=== PATIENT | male | born 1945 | race Caucasian/White ===

== ENCOUNTER 2020-07-06 | Outpatient (REF) | payer MEDICARE, SELFPAY | END 2020-07-06 00:01 | disposition home or self-care (01) | LOC: HO.VC | PROVIDERS: Visit Provider Internal Medicine | DX: Z23 Encounter for immunization (principal) | CPT/HCPCS: 0011A ==

== ENCOUNTER 2020-08-02 | Outpatient (REF) | payer MEDICARE, SELFPAY | END 2020-08-02 00:01 | disposition home or self-care (01) | LOC: HO.VC | PROVIDERS: Visit Provider Internal Medicine | DX: Z23 Encounter for immunization (principal) | CPT/HCPCS: 0012A ==

== ENCOUNTER 2021-07-18 11:25 | Outpatient (REF) | payer MEDICARE, SELFPAY ==
[2021-07-18 14:09] LABS: Appearance Urine CLEAR; Color Urine YELLOW; Glucose Urine UA NEG (NEG); Leukocyte Esterase Urine NEG (NEG); Nitrite Urine NEG (NEG); PH 5.5 (5.0-8.0); Specific Gravity - Urine >= 1.030 (1.005-1.025); Urine Blood NEG (NEG); Urine Ketones NEG (NEG); Urine Protein NEG (NEG-TRACE)
[2021-07-18 14:11] LABS: Hematocrit 45.4 % (42.0-52.0); Hemoglobin 15.6 g/dl (14.0-18.0); Mean Corpuscular HGB Conc 34.4 g/dl (31.0-36.0); Mean Corpuscular Hemoglobin 32.2 pg (27.0-33.0); Mean Corpuscular Volume 93.6 fL (80.0-98.0); Mean Platelet Volume 10.5 fL (9.4-12.4); Platelet Count 166 X10*3/uL (160-400); Red Blood Count 4.85 X10*6/uL (4.60-5.80); Red Cell Distribution Width 12.8 % (11.0-16.0); White Blood Count 6.2 X10*3/uL (4.8-10.8)
[2021-07-18 14:21] LABS: Alanine Aminotransferase 43 U/L (0-40); Albumin Level 4.5 g/dL (3.5-5.0); Alkaline Phosphatase 57 U/L (39-117); Anion Gap 13 (12-20); Aspartate Amino Transferase 32 U/L (5-37); Bilirubin Direct 0.4 mg/dL (0.0-0.5); Bilirubin Total 1.1 mg/dL (0.0-1.0); Blood Urea Nitrogen 14 mg/dL (9-16); Calcium 9.9 mg/dL (8.4-10.2); Carbon Dioxide 26 mmol/L (22-29); Chloride 106 mmol/L (96-108); Cholesterol 176 mg/dL; Estimated Glomerular Filt Rate > 60; Glucose Random 145 mg/dL (60-115); HDL Cholesterol 44 mg/dL; LDL Cholesterol Calculated 102 mg/dl; Potassium 4.3 mmol/L (3.3-5.1); Sodium 141 mmol/L (135-145); Total Protein 7.2 g/dL (6.5-8.0); Triglycerides 152 mg/dL
[2021-07-18 14:26] LABS: Estimated Average Glucose 146 mg/dL; Hemoglobin A1c % 6.7 %
[2021-07-18 14:39] LABS: Creatinine Urine 181.98 mg/dL; Microalbum/Creatinine Ratio Ur 10.9 ug/mg cr
[2021-07-18 14:44] LABS: Thyroid Stimulating Hormone 2.22 uIU/mL (0.32-4.0)
[2021-07-18 14:46] LABS: Erythrocyte Sedimentation Rate 7 MM/HR (0-15)
== END 2021-07-18 11:26 | disposition home or self-care (01) ==
LOC: HO.HMGCLDS 11:25
PROVIDERS: PCP Internal Medicine; Visit Provider Internal Medicine
DX: E11.9 Type 2 diabetes mellitus without complications (principal)
CPT/HCPCS: 36415; 80048; 80061; 80076; 81003; 82043; 83036; 84443; 85027; 85652

== ENCOUNTER → 2022-07-18 12:47 | Outpatient (BNVA) | payer MEDICARE, SELFPAY | PROVIDERS: PCP Internal Medicine; Visit Provider Urology | DX: N40.1 Benign prostatic hyperplasia with lower urinary tract symptoms (principal); N13.8 Other obstructive and reflux uropathy; R39.15 Urgency of urination | CPT/HCPCS: 51798; 99202 ==

== ENCOUNTER 2022-08-01 13:50 | Outpatient (REF) | payer MEDICARE, SELFPAY ==
--- NOTE | ~2022-08-01 | US_ITS ---
EXAMINATION: US RETROPERITONEAL LIMITED (RENAL ONLY) CLINICAL INFORMATION: Benign prostatic hyperplasia with lower urinary tract symptoms. COMPARISON: Ultrasound abdomen complete 04/17/2017. TECHNIQUE: Real-time imaging of the kidneys. FINDINGS: RIGHT KIDNEY: 11.7 x 6.4 x 6.4 cm (SAG x AP x TRV). The kidney is normal in size, contour, and echogenicity. Renal cortical thickness is normal. No renal calculi or hydronephrosis. There are multiple renal cysts. A midpole cyst measures 1.9 x 1.9 x 2.0 cm. A complex cyst midpole measuring 1.7 x 1.3 x 1.3 cm. A midpole cyst measures 0.63 x 0.70 x 0.72 cm. LEFT KIDNEY: 12.8 x 6.1 x 5.9 cm (SAG x AP x TRV). The kidney is normal in size, contour, and echogenicity. Renal cortical thickness is normal. No renal calculi or hydronephrosis. There are several additional anechoic cysts. A lower pole cyst measures 0.92 x 0.87 x 0.73 cm, midpole cyst measures 1.2 x 1.3 x 1.0 cm, a midpole cyst measures 2.6 x 3.6 x 2.3 cm and is complex. Two (2) upper pole cysts a simple cyst measuring 2.4 x 2.4 x 2.4 cm and a complex cyst measuring 7.9 x 6.2 x 5.6 cm. US/US renal BI IMPRESSION: Bilateral simple and complex renal cysts. The cyst may be minimally larger compared to last exam 04/17/2017.
== END 2022-08-01 13:51 | disposition home or self-care (01) ==
LOC: HO.HMGCX 13:50
PROVIDERS: PCP Internal Medicine; Visit Provider Urology
DX: N40.1 Benign prostatic hyperplasia with lower urinary tract symptoms (principal); R39.15 Urgency of urination
CPT/HCPCS: 76775

== ENCOUNTER 2022-08-02 11:18 | Outpatient (REF) | payer MEDICARE, SELFPAY ==
[2022-08-02 14:03] LABS: Appearance Urine Turbid; Color Urine Yellow; Glucose Urine UA Negative (Negative); Leukocyte Esterase Urine Negative (Negative); Nitrite Urine Negative (Negative); PH 5.5 (5.0-9.0); Specific Gravity - Urine >= 1.030 (1.005-1.025); Urine Blood Negative (Negative); Urine Ketones Trace mg/dL (Negative); Urine Protein Trace mg/dL (Neg-Trace)
[2022-08-02 14:26] LABS: Hemoglobin 14.5 g/dl (14.0-18.0); Mean Corpuscular HGB Conc 33.7 g/dl (31.0-36.0); Mean Corpuscular Volume 97.7 fL (80.0-98.0); Mean Platelet Volume 10.9 fL (9.4-12.4); Platelet Count 163 X10*3/uL (160-400); White Blood Count 6.2 X10*3/uL (4.8-10.8)
[2022-08-02 14:34] LABS: Alanine Aminotransferase 32 U/L (0-40); Albumin Level 4.2 g/dL (3.5-5.0); Alkaline Phosphatase 51 U/L (39-117); Anion Gap 12 (12-20); Aspartate Amino Transferase 24 U/L (5-37); Bilirubin Direct 0.3 mg/dL (0.0-0.5); Bilirubin Total 0.9 mg/dL (0.0-1.0); Blood Urea Nitrogen 18 mg/dL (9-16); Calcium 9.2 mg/dL (8.4-10.2); Carbon Dioxide 27 mmol/L (22-29); Chloride 106 mmol/L (96-108); Cholesterol 154 mg/dL; Estimated Glomerular Filt Rate > 60; Glucose Random 127 mg/dL (60-115); HDL Cholesterol 50 mg/dL; LDL Cholesterol Calculated 88 mg/dl; Potassium 4.4 mmol/L (3.3-5.1); Sodium 141 mmol/L (135-145); Total Protein 6.6 g/dL (6.5-8.0); Triglycerides 80 mg/dL
[2022-08-02 14:47] LABS: Prostate Specific Antigen Scr 0.34 ng/mL (<0.05-4.0)
[2022-08-02 14:49] LABS: PSA,Total (Free>4and<10) 0.36 ng/mL (0.00-4.00); Thyroid Stimulating Hormone 1.57 uIU/mL (0.32-4.0)
== END 2022-08-02 11:19 | disposition home or self-care (01) ==
LOC: HO.HMGCLDS 11:18
PROVIDERS: Urology; PCP Internal Medicine; Visit Provider Internal Medicine
DX: N40.1 Benign prostatic hyperplasia with lower urinary tract symptoms (principal); E11.9 Type 2 diabetes mellitus without complications; M35.3 Polymyalgia rheumatica; Z12.5 Encounter for screening for malignant neoplasm of prostate
CPT/HCPCS: 36415; 80048; 80061; 80076; 81003; 84153; 84443; 85027

== ENCOUNTER → 2022-10-12 14:22 | Outpatient (BNVA) | payer MEDICARE, SELFPAY | PROVIDERS: PCP Internal Medicine; Visit Provider Urology | DX: N40.0 Benign prostatic hyperplasia without lower urinary tract symptoms (principal); N28.1 Cyst of kidney, acquired | CPT/HCPCS: 52000; 99212 ==

== ENCOUNTER 2022-11-08 09:04 | Outpatient (REF) | payer MEDICARE, SELFPAY ==
[2022-11-08 11:37] LABS: MANUAL DIFF FLAG NO
[2022-11-08 11:53] LABS: Basophils Percent Auto 0.5 % (0-2); Eosinophils Absolute Auto 0.1 X10*3/uL (0.0-0.4); Eosinophils Percent Auto 2.4 % (0-4); Hematocrit 42.3 % (42.0-52.0); Imm Gran Abs Auto 0.02 X10*3/uL (0.00-0.03); Imm Gran Pct Auto 0.3 % (0.0-0.4); Lymphocytes Absolute Auto 0.9 X10*3/uL (1.2-4.9); Lymphocytes Percent Auto 14.6 % (20-40); Mean Corpuscular HGB Conc 33.1 g/dl (31.0-36.0); Mean Corpuscular Volume 99.8 fL (80.0-98.0); Mean Platelet Volume 10.9 fL (9.4-12.4); Monocytes Absolute Auto 0.6 X10*3/uL (0.1-1.2); Monocytes Percent Auto 10.2 % (2-11); Neutrophils Absolute Auto 4.2 x10*3/uL (2.0-8.3); Platelet Count 167 X10*3/uL (160-400); Red Blood Count 4.24 X10*6/uL (4.60-5.80); Red Cell Distribution Width 13.5 % (11.0-16.0); White Blood Count 5.9 X10*3/uL (4.8-10.8)
[2022-11-08 11:58] LABS: D Dimer High Sensitivity 160 NG/ML
[2022-11-08 12:04] LABS: B Type Natriuretic Peptide 257 pg/mL (<100)
[2022-11-08 12:12] LABS: Alanine Aminotransferase 43 U/L (0-40); Albumin Level 4.2 g/dL (3.5-5.0); Alkaline Phosphatase 66 U/L (39-117); Anion Gap 14 (12-20); Aspartate Amino Transferase 37 U/L (5-37); Blood Urea Nitrogen 10 mg/dL (9-16); Calcium 9.8 mg/dL (8.4-10.2); Carbon Dioxide 27 mmol/L (22-29); Chloride 106 mmol/L (96-108); Estimated Glomerular Filt Rate > 60; Glucose Random 114 mg/dL (60-115); Potassium 4.6 mmol/L (3.3-5.1); Sodium 142 mmol/L (135-145); Total Protein 6.6 g/dL (6.5-8.0)
== END 2022-11-08 09:05 | disposition home or self-care (01) ==
LOC: HO.HMGCLDS 09:04
PROVIDERS: PCP Internal Medicine; Visit Provider Nurse Practitioner Family
DX: R60.0 Localized edema (principal); R06.02 Shortness of breath; R01.1 Cardiac murmur, unspecified; Z13.0 Encounter for screening for diseases of the blood and blood-forming organs and certain disorders involving the immune mechanism
CPT/HCPCS: 36415; 80053; 83880; 85025; 85379

== ENCOUNTER 2022-11-22 13:21 | Outpatient (REF) | payer MEDICARE, SELFPAY ==
--- NOTE | ~2022-11-22 | CT_ITS ---
EXAMINATION: CT ABDOMEN AND PELVIS WITHOUT AND WITH CONTRAST CLINICAL INFORMATION: Kidney cyst COMPARISON: Previous renal ultrasound August 2022, abdominal ultrasound April 2017 TECHNIQUE: Multidetector volumetric imaging was performed of the abdomen and pelvis before and after the IV administration of 85 mL of Omnipaque 300 intravenous contrast. Sagittal and coronal reformatted images were obtained on the technologist's workstation. This CT examination was performed using dose optimization techniques as appropriate, variously including the following: *Automated exposure control *Adjustment of mA and/or kV according to patient size (this includes techniques or standardized protocols for targeted exams where dose is matched to indication/reason for exam; i.e. extremities or head) *Use of iterative reconstruction technique DLP: 1233 mGy-cm FINDINGS: LUNG BASES: 3 mm calcified right lower lobe nodule. The lungs are otherwise clear. LIVER, GALLBLADDER, AND BILIARY TREE: Question mild cirrhotic changes of the liver. No focal liver lesion. Normal gallbladder. No biliary duct dilatation. PANCREAS: Unremarkable SPLEEN: Unremarkable ADRENAL GLANDS: Unremarkable KIDNEYS AND URETERS: Multiple bilateral simple appearing renal cysts. Largest cysts exophytic to the upper pole of the left kidney and measures 6.3 x 7.8 cm. No imaging follow-up recommended. No renal stone, mass or hydronephrosis. BLADDER: Unremarkable GASTROINTESTINAL TRACT: Diverticulosis of the colon. No evidence of diverticulitis. Small and large bowel is otherwise unremarkable. The appendix is unremarkable. ABDOMINAL WALL: Right inguinal hernia containing fat. Small umbilical hernia containing fat LYMPH NODES: Normal VASCULAR: Atherosclerotic disease. No aneurysm. Portal vein is prominent measuring 1.7 cm. There are small upper abdominal varices. No ascites. PELVIC VISCERA: Unremarkable OSSEOUS STRUCTURES: Degenerative changes of the spine. CT/CT abdomen pelvis wo/w IV con IMPRESSION: Multiple bilateral simple renal cysts. No imaging follow-up recommended. Mild cirrhotic changes of the liver. Diverticulosis. Fleischner guidelines were followed.
[2022-11-22] MEDS: iohexoL 350 MG/ML 100 ML INFUS..BTL IV (14:26)
== END 2022-11-22 13:22 | disposition home or self-care (01) ==
LOC: HO.CT 13:21
PROVIDERS: Visit Provider Urology
DX: N28.1 Cyst of kidney, acquired (principal)
CPT/HCPCS: 74178; Q9967

== ENCOUNTER → 2022-12-10 12:51 | Outpatient (REF) | payer MEDICARE, SELFPAY | LOC: HO.CARD 12:51 | PROVIDERS: PCP Internal Medicine; Visit Provider Nurse Practitioner Family | DX: R01.1 Cardiac murmur, unspecified (principal) | CPT/HCPCS: 93306; Q9957 ==

== ENCOUNTER → 2022-12-10 12:53 | Outpatient (BNV) | payer MEDICARE, SELFPAY | PROVIDERS: PCP Internal Medicine; Visit Provider Internal Medicine Cardiovascular Disease | DX: R01.1 Cardiac murmur, unspecified (principal) | CPT/HCPCS: 93306 ==

== ENCOUNTER 2022-12-12 13:55 | Outpatient (AMB) | payer MEDICARE, SELFPAY ==
--- NOTE | 2022-12-12 12:59 | A.OFFVIS_ITS ---
Intake Intake Visit Reasons: 2m/CT Intake Note: * Patient presents today for a 2mo follow-up on with CT scan results. * Meds- None * Allergies to Antibiotic- None * Blood Thinner- Aspirin & Furosemide * PVR- 0ml Neurosurgical Nurse Required: No Accompanied by: Self / Same As Patient Allergies No Known Allergies [No Known Allergies*] Allergy (Verified 12/12/22 14:10) HPI HPI Comments History of Present Illness Details Bry is a 77-year-old male who presents to the office for 2-month follow-up and discussion of CT scan results. He was last seen on 10/12/22. CoMorbidity- Diabetes, denies previous stroke. Complex renal cyst bilaterally noted on renal sono. CAT scan abdomen with/without contrast was ordered. LV--10/12/22-- Bry is a 77-year-old male who presents to the office for follow-up of urinary urgency and BPH. Office visit--07/18/22--complains over the last several months to year has noticed a change in urination, he is up 3-4 times to urinate at night. When he gets up from sitting he gets a strong urge and needs to pineda to the bathroom, Denies blood in the urine, denies dysuria. He is concerned about cancer. Patient declined prostate exam The patient states that his symptoms of urinary urgency have resolved and is having good urine flow. Will hold on Office Cystoscopy Urinalysis today was negative. Renal US results were discussed and we are going to get further evaluation with CAT scan. Discussed PSA which was normal. Evaluation 10/12/22 UA-- Blood: negative, leukocytes: negative. Renal US results reviewed--08/01/22--findings of left kidney complex cyst measuring 7.9 cm, lower pole cyst measuring 0.92 cm and midpole cyst measures 1.2 and 2.6 cm. Right kidney midpole cyst measures 1.9 and complex cyst midpole measuring 1.7. PSA results reviewed--08/02/22--0.34. Plan:Complex renal cyst bilaterally. CAT scan abdomen with/without contrast was ordered. 12/12/22-- Evaluation today UA: Bladder scan PVR: 0 mL. Reviewed CAT scan--11/22/22--The CAT scan is consistent with simple cyst, no imaging follow-up recommended. Plan: Renal Cysts bilaterally, simple BPH Follow-up after 9 months. [facility] Medical History Diabetes mellitus Mild ascending aorta dilatation Polymyalgia rheumatica Surgical History History of bilateral cataract extraction History of inguinal hernia repair History of lumbar laminectomy History of nasal surgery Family History Father No problems noted. Mother No problems noted. Brother Esophageal cancer Social History Housing: House Alcohol intake: current Alcohol intake frequency: holidays/special occasions only Alcohol type: beer Patient Tobacco Use Status: Former Tobacco user Quit Date: 43 years ago e-Cigarette/Vaping Use: Never Used Second Hand Smoke Exposure: No service: No Current occupational status: retired Cognitive needs: No Hearing needs: No Vision needs: Yes (reading glasses) Review of Systems Const All systems reviewed & are unremarkable except as noted in HPI and below Reports no additional complaints Eyes Reports no additional complaints ENT Reports no additional complaints Card Denies dyspnea Resp Denies cough and Denies dyspnea GI Reports no additional complaints Musc Reports no additional complaints Skin/Breast Denies rash and Denies unusual bruising Neuro Reports no additional complaints Psych Reports no additional complaints Endo Reports no additional complaints Italo/Lymph Reports no additional complaints Aller/Immun Reports no additional complaints Physical Exam Const General: healthy appearing, no acute distress and well developed Orientation/consciousness: patient oriented x3 HEENT Head: Yes normocephalic and Yes atraumatic Eyes Conjunctivae: conjunctivae normal Neck Neck: Yes normal visual inspection Chest Chest palpation & inspection: normal inspection of the chest Resp Effort & Inspection: normal respiratory effort Cardio Rate: regular rate GI Inspection: Yes normal to inspection Skin General skin exam: no rashes or lesions noted Neuro General: patient oriented x3 Psych Appearance: grossly normal Affect: normal affect Office Procedures Post Void Residual Post Residual Void Post Void Residual (PVR): 0 02603-[id number] Void Residual by ultrasound Results AMB Urinalysis, Automated UA Leukoctes 0 Rubens/uL Last Edit by Milind Sanz [facility] on 12/12/22 14:10 UA Nitrite Negative Last Edit by Milind Sanz [facility] on 12/12/22 14:10 UA Urobilinogen 0.2 mg/dL Last Edit by Milind Sanz [facility] on 12/12/22 14:1 0 UA Protein 0 mg/dL Last Edit by Milind Sanz [facility] on 12/12/22 14:10 UA pH 6.0 Last Edit by Milind Sanz [facility] on 12/12/22 14:10 UA Blood 0 Gio/uL Last Edit by Milind Sanz [facility] on 12/12/22 14:10 UA Specific [place] 1.030 Last Edit by Milind Sanz [facility] on 12/12/22 14: 10 UA Ketone Negative Last Edit by Milind Sanz [facility] on 12/12/22 14:10 UA Bilirubin 0 mg/dL Last Edit by Milind Sanz [facility] on 12/12/22 14:10 UA Glucose 0 mg/dL Last Edit by Milind Sanz [facility] on 12/12/22 14:10 Results Reviewed Results Reviewed: Laboratory Last Values Urine pH (Auto) 6.0 12/12/22 13:59 Specific [place] (Auto) 1.030 12/12/22 13:59 Urine Protein (Auto) 0 mg/dL 12/12/22 13:59 Glucose (UA)(Auto) 0 mg/dL 12/12/22 13:59 Urine Ketones (Auto) Negative 12/12/22 13:59 Urine Blood (Auto) 0 Gio/uL 12/12/22 13:59 Urine Nitrite (Auto) Negative 12/12/22 13:59 Urine Bilirubin (Auto) 0 mg/dL 12/12/22 13:59 Urine Urobilinogen (Auto) 0.2 mg/dL 12/12/22 13:59 Leukocyte Esterase (Auto) 0 Rubens/uL 12/12/22 13:59 Date of Service: 11/22/22 EXAMINATION: CT ABDOMEN AND PELVIS WITHOUT AND WITH CONTRAST CLINICAL INFORMATION: Kidney cyst COMPARISON: Previous renal ultrasound August 2022, abdominal ultrasound April 2017 TECHNIQUE: Multidetector volumetric imaging was performed of the abdomen and pelvis before and after the IV administration of 85 mL of Omnipaque 300 intravenous contrast. Sagittal and coronal reformatted images were obtained on the technologist's workstation. This CT examination was performed using dose optimization techniques as appropriate, variously including the following: *Automated exposure control *Adjustment of mA and/or kV according to patient size (this includes techniques or standardized protocols for targeted exams where dose is matched to indication/reason for exam; i.e. extremities or head) *Use of iterative reconstruction technique DLP: 1233 mGy-cm FINDINGS: LUNG BASES: 3 mm calcified right lower lobe nodule. The lungs are otherwise clear. LIVER, GALLBLADDER, AND BILIARY TREE: Question mild cirrhotic changes of the liver. No focal liver lesion. Normal gallbladder. No biliary duct dilatation. PANCREAS: Unremarkable SPLEEN: Unremarkable ADRENAL GLANDS: Unremarkable KIDNEYS AND URETERS: Multiple bilateral simple appearing renal cysts. Largest cysts exophytic to the upper pole of the left kidney and measures 6.3 x 7.8 cm. No imaging follow-up recommended. No renal stone, mass or hydronephrosis. BLADDER: Unremarkable GASTROINTESTINAL TRACT: Diverticulosis of the colon. No evidence of diverticulitis. Small and large bowel is otherwise unremarkable. The appendix is unremarkable. ABDOMINAL WALL: Right inguinal hernia containing fat. Small umbilical hernia containing fat LYMPH NODES: Normal VASCULAR: Atherosclerotic disease. No aneurysm. Portal vein is prominent measuring 1.7 cm. There are small upper abdominal varices. No ascites. PELVIC VISCERA: Unremarkable OSSEOUS STRUCTURES: Degenerative changes of the spine. IMPRESSION: Multiple bilateral simple renal cysts. No imaging follow-up recommended. Mild cirrhotic changes of the liver. Diverticulosis. Assessment & Plan Assessment & Plan (1) Simple renal cyst: Code(s): N28.1 - Cyst of kidney, acquired (2) BPH (benign prostatic hyperplasia): Code(s): N40.0 - Benign prostatic hyperplasia without lower urinary tract symptoms Plan Follow-up after 9 months. Orders: Orders AMB Urinalysis Automated 12/12/22 Z13.9 - Encounter for screening, unspecified AMB Post Void Residual by ultrasound 12/12/22 N39.8 - Other specified disorders of urinary system Patient Instructions: The patient had an opportunity to ask questions regarding treatment plan. All questions were answered. Imaging and physical exam results were discussed and reviewed in detail. No major barriers to understanding were identified. The patient expressed understanding and agreement with the above treatment plan. The patient is aware they should contact our office by phone for worsening of their current condition or the appearance of new symptoms. Compliance is encouraged with any medications and followup testing that is ordered. It is a privilege to be allowed the opportunity to participate in the urologic care of your patient. If you have any questions or concerns regarding treatment for the above conditions please do not hesitate to contact me. The office telephone contact is [phone]. This note is constructed in part using voice recognition software. While every effort has been made to ensure accuracy material preparation worker errors may have been included. Yours sincerely, Rom Akins MD Coding Level of Care Code Est Pt Level 3 (78986) Diagnoses Simple renal cyst N28.1 BPH (benign prostatic hyperplasia) N40.0 CPT Codes Post Residual Void - PVR CPT Code: 46459-Urhv Void Residual by ultrasound ([id number])
== END 2022-12-12 14:18 | disposition home or self-care (01) ==
PROVIDERS: Visit Provider Urology
DX: N28.1 Cyst of kidney, acquired (principal); N40.0 Benign prostatic hyperplasia without lower urinary tract symptoms
CPT/HCPCS: 99213

== ENCOUNTER → 2022-12-12 13:55 | Outpatient (BNVA) | payer MEDICARE, SELFPAY | PROVIDERS: Visit Provider Urology | DX: N28.1 Cyst of kidney, acquired (principal); N40.0 Benign prostatic hyperplasia without lower urinary tract symptoms; R39.15 Urgency of urination; E11.9 Type 2 diabetes mellitus without complications; R91.1 Solitary pulmonary nodule; Z79.82 Long term (current) use of aspirin; Z79.899 Other long term (current) drug therapy | CPT/HCPCS: 51798; 99212 ==

== ENCOUNTER 2022-12-26 13:19 | Outpatient (AMB) | payer MEDICARE, SELFPAY ==
--- NOTE | 2022-12-26 13:21 | A.OFFVIS_ITS ---
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/ V/non rheumatic aortic stenosis Intake Note: New patient aortic stenosis Commercial Intelligence Manager Required: No Financial Professional: Financial Professional Present Accompanied by: Spouse Allergies No Known Allergies [No Known Allergies*] Allergy (Verified 12/12/22 14:10) Medication List - Last Reconciled 12/26/22 by Danny Garduno MD aspirin 81 mg PO DAILY atorvastatin 20 mg PO DAILY metformin ER 500 mg PO BID metoprolol succinate ER 50 mg PO DAILY pioglitazone 15 mg PO DAILY HPI HPI Comments History of Present Illness Details Thank you for referring Saud in cardiology consultation today for recent onset increasing exertional shortness of breath. Since then he had an echocardiogram which showed low normal LV systolic function with mild LVH with moderate to severe aortic stenosis with mean gradient of 24 mmHg and mildly dilated ascending aorta. He also had a BNP done around that time which was in the upper 200 range. He denies any clear symptoms of leg edema or abdominal distension or orthopnea. He denies any associated chest discomfort. Since then he has changed his diet significantly and says he has lost about 15 lb of belly weight. He shortness of breath has improved. He denies any exertional chest tightness. No prolonged palpitation irregular heartbeat. No lightheadedness, syncope. He said about 21 years ago he had a heart attack related to lot of stress at that time at a cardiac catheterization and was told that he had partial blockage is about up to 50%. He does not recall the details. At that time no stents were put in. Since then he has been on statin therapy along with aspirin therapy. He has been since diagnosed with diabetes as been metformin and about a year ago was started on p.o. bleed his own. He has no clear history of hypertension. No hospitalizations for heart failure. [facility] Medical History Diabetes mellitus Mild ascending aorta dilatation Polymyalgia rheumatica Surgical History History of bilateral cataract extraction History of inguinal hernia repair History of lumbar laminectomy History of nasal surgery Family History Father No problems noted. Mother No problems noted. Brother Esophageal cancer Social History Housing: House Alcohol intake: current Alcohol intake frequency: holidays/special occasions only Alcohol type: beer Patient Tobacco Use Status: Former Tobacco user Quit Date: 43 years ago e-Cigarette/Vaping Use: Never Used Second Hand Smoke Exposure: No service: No Current occupational status: retired Cognitive needs: No Hearing needs: No Vision needs: Yes (reading glasses) Review of Systems Const Denies chills, Denies daytime sleepiness, Denies fatigue, Denies fever(s), Denies frequent falls, Denies poor appetite, Denies snoring, Denies stops breathing during sleep, Denies weakness, Denies weight gain and Denies weight loss Eyes Denies loss of vision ENT Denies dizziness and Denies hearing loss Card Denies chest pain, Denies claudication, Denies leg edema, Denies lightheadedness, Denies palpitations, Denies dyspnea, Denies dyspnea on exertion and Denies orthopnea Resp Denies cough, Denies excessive phlegm production, Denies dyspnea, Denies dyspnea on exertion, Denies snoring and Denies wheezing GI Denies abdominal pain, Denies hematochezia, Denies change in bowel habits, Denies nausea and Denies vomiting Denies dysuria and Denies urinary frequency Musc Denies arthralgias, Denies muscle weakness, Denies numbness and Denies other (frequent falls) Skin/Breast Denies nail changes and Denies rash Neuro Denies Abnormal speech present, Denies dizziness, Denies frequent falls, Denies loss of vision, Denies memory loss, Denies numbness and Denies weakness Psych Denies depression and Denies memory loss Endo Denies fatigue and Denies palpitations Italo/Lymph Reports easy bruising and Reports other (anemia) Aller/Immun Denies wheezing Physical Exam Vital Signs: Last Vital Signs Pulse 73 12/26/22 13:22 BP 114/74 12/26/22 13:22 BMI result Body Mass Index 32.3 Const General: cooperative, comfortable, no acute distress, alert, awake, anxious and well groomed Nutritional Appearance: obese Orientation/consciousness: patient oriented x3 Limitations: no limitations HEENT Head: Yes normocephalic and Yes atraumatic Neck Neck: Yes trachea midline, Yes supple and Yes no JVD Resp Effort & Inspection: normal respiratory effort Auscultation: clear to auscultation bilaterally Cardio Jugular venous distension: no JVD Palpation: normal PMI Rate: regular rate Rhythm: regular rhythm Heart sounds: S1 normal heart sound present, S2 normal heart sound present ( soft), no click, no gallops and Murmur heart sound present systolic late, decrescendo and crescendo GI Inspection: Yes obesity Auscultation: normal bowel sounds Skin General skin exam: no rashes or lesions noted Neuro General: patient oriented x3 and no focal motor deficits Speech: No Abnormal speech present Extrem General: Yes no clubbing, cyanosis or edema Office Procedures EKG Details: EKG shows normal sinus rhythm first-degree AV block with minimal voltage criteria for LVH with inferior Q-waves [id number], Complete Assessment & Plan Assessment & Plan (1) Shortness of breath: Code(s): R06.02 - Shortness of breath Plan: shortness of breath on exertion, recent onset in this elderly gentleman with improved symptoms since losing weight with evidence of elevated BNP as well as moderately severe aortic stenosis. Possible reason for symptoms include progressive coronary artery disease with significant myocardial ischemia, early in CP and diastolic heart failure secondary diastolic dysfunction. Less likely that her his aortic stenosis is causing him symptoms. At this point time his symptoms improved weight loss advised to continue to participate in weight loss program although avoid sudden strenuous and sustain exercise. I would recommend him to undergo cardiac catheterization with hemodynamic assessment including assessment of the aortic valve invasively. Evaluation of coronary anatomy as well as left heart and right heart filling pressures. Further treatment based on the findings. I have advised him to stop p.o. clear to zone which can potentiate fluid retention and switch her to Jardiance 10 mg daily. Currently he does not appear to be significantly fluid overloaded and there is no need for loop diuretic at this point time. Will check BNP in 1 weeks time. Continue aggressive blood pressure control. We discussed the risks, benefits, alternatives cardiac catheterization. He understands and agrees. (2) Moderate to severe aortic stenosis: Code(s): I35.0 - Nonrheumatic aortic (valve) stenosis Plan: Aortic stenosis which is moderate to moderately severe. We discussed about pathophysiology of aortic stenosis and usual natural course with progressive aortic stenosis that may require valve replacement. However does not require valve replacement this point time and unlikely that this is the cause of his significant shortness of breath. Advised continue aggressive risk factor modification. Low-dose aspirin therapy. Continue aggressive management of blood pressure which is well optimized. Aggressive management diabetes goal hemoglobin A1c less than 7% goal LDL closer to 60 mg/dL. Follow up in the clinic after cardiac catheterization. Thank you for allowing me to partake in his care Orders: Orders Cardiac Cath ANGEL Diagnostic 2 Weeks R06.02 - Shortness of breath B Type Natriuretic Peptide 1 Week R06.02 - Shortness of breath Basic Metabolic Panel 1 Week R06.02 - Shortness of breath Complete Blood Count no Diff 1 Week R06.02 - Shortness of breath Prothrombin Time INR 1 Week R06.02 - Shortness of breath Medications: New empagliflozin (Jardiance) 10 mg PO DAILY 30 tabs 5RF atorvastatin 40 mg PO DAILY 30 tabs 2RF Discontinued pioglitazone Discontinued Reason: No Longer Medically Relevant 15 mg PO DAILY 90 tabs 1RF Coding Level of Care Code New Pt Level 4 (90900) Diagnoses Shortness of breath R06.02 Moderate to severe aortic stenosis I35.0 CPT Codes EKG - CPT: 42161-[id number], Complete ([id number])
[2022-12-26 13:22] VITALS: BP 114/74; PULSE 73; BMI 32.3
== END 2022-12-26 14:05 | disposition home or self-care (01) ==
PROVIDERS: PCP Internal Medicine; Visit Provider Internal Medicine Cardiovascular Disease
DX: R06.02 Shortness of breath (principal); I35.0 Nonrheumatic aortic (valve) stenosis; I44.0 Atrioventricular block, first degree
CPT/HCPCS: 93010; 99204

== ENCOUNTER → 2022-12-26 13:19 | Outpatient (BNVA) | payer MEDICARE, SELFPAY | PROVIDERS: PCP Internal Medicine; Visit Provider Internal Medicine Cardiovascular Disease | DX: R06.02 Shortness of breath (principal); I35.0 Nonrheumatic aortic (valve) stenosis | CPT/HCPCS: 93005; 99202 ==

== ENCOUNTER 2023-01-10 14:55 | Outpatient (AMB) | payer MEDICARE, SELFPAY ==
--- NOTE | 2023-01-10 15:06 | A.OFFPC_ITS ---
Vital Signs 01/10/23 15:08 Height 5 ft 10 in Weight 220 lb 2 oz BMI 31.6 BP 132/76 Blood Pressure Location Lt brachial Position Sitting Pulse 71 Pulse Source Pulse Oximeter Pulse Oximetry (%) 98 Oxygen Delivery Method Room Air Intake Visit Reasons: 6mth f/u - microalbumin due Intake Note: Patient is here to follow up on DM, BPH. Due for microalbumin. 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: Not Required per policy Accompanied by: Self / Same As Patient Allergies No Known Allergies [No Known Allergies*] Allergy (Verified 01/25/23 18:35) Medication List - Last Reconciled 01/25/23 by Thomas Gonzales MD aspirin 81 mg PO DAILY atorvastatin 40 mg PO DAILY metformin ER 500 mg PO BID metoprolol succinate ER 50 mg PO DAILY Tobacco use date assessed: 01/10/23 Fall risk assessment: 1 Fall in past year Last assessed Fall Risk: 01/10/23 Dental Screening Dental Screen Date: 01/10/23 Did you have a dental visit in the last 12 months?: Yes Did you have a dental problem in the last 6 months where you did not have access to dental care?: No Was dental information given to patient?: Patient has dentist HPI 6mth f/u - microalbumin due HPI Details 77-year-old male presents to the office to discuss his chronic medical conditions. Patient spent some time at [facility] after he had a fall at home. He was diagnosed with aortic stenosis. He has a scheduled to see the social welfare research worker. [facility] Medical History Diabetes mellitus Mild ascending aorta dilatation Polymyalgia rheumatica Surgical History History of bilateral cataract extraction History of inguinal hernia repair History of lumbar laminectomy History of nasal surgery Family History Father No problems noted. Mother No problems noted. Brother Esophageal cancer Social History Housing: House Alcohol intake: current Alcohol intake frequency: holidays/special occasions only Alcohol type: beer Patient Tobacco Use Status: Former Tobacco user Quit Date: 43 years ago e-Cigarette/Vaping Use: Never Used Second Hand Smoke Exposure: No service: No Current occupational status: retired Cognitive needs: No Hearing needs: No Vision needs: Yes (reading glasses) Questionnaire Thrive Questionnaire Date Thrive assessed: 07/10/22 AUDIT C Alcohol Use Questionnaire (AUDIT-C) 1. How often do you have a drink containing alcohol?: Never Total Score: 0 FLACO-7 AMB Questionnaire FLACO-7 Date FLACO - 7 assessed: 01/10/23 Feeling nervous, anxious, or on edge: 0 = Not at all Not being able to stop or control worryin = Not at all Worrying too much about different things: 0 = Not at all Trouble relaxin = Not at all Being so restless that it is hard to sit still: 0 = Not at all Becoming easily annoyed or irritable: 0 = Not at all Feeling afraid as if something awful might happen: 0 = Not at all Total FLACO-7 score (0-4 normal; 5-9 mild; 10-14 moderate; 15-21 severe): 0 Source: Developed by Drs. Guillermo Jha, Christiane Alegria, Tim Delgado and colleagues, with an educational dante from [employer]. Physical exam (Primary Care) Vital Signs: Last Vital Signs Pulse 71 01/10/23 15:08 BP 132/76 01/10/23 15:08 Pulse Ox 98 01/10/23 15:08 Oxygen Delivery Method Room Air 01/10/23 15:08 Care Plan Goal for BP management: Blood pressure is in range BMI result Body Mass Index 31.6 Tobacco/Smoking Status: Tobacco use Status Tobacco use date assessed 01/10/23 01/10/23 15:35 Patient Tobacco Use Status Former Tobacco user 01/10/23 15:35 e-Cigarette/Vaping Use Never Used 01/10/23 15:35 Thrive Assessment: Date of Thrive Assessment Date Thrive assessed 07/10/22 01/10/23 15:35 Const General: cooperative, healthy appearing and comfortable HENMT Head: Yes normal to inspection and Yes atraumatic Eyes General: appearance normal, both eyes and all related structures Neck Neck: Yes normal visual inspection and Yes full ROM Chest Chest palpation & inspection: normal inspection of the chest Resp Effort & Inspection: normal respiratory effort Auscultation: clear to auscultation bilaterally Cardio Jugular venous distension: no JVD Palpation: normal PMI Rate: regular rate Heart sounds: S1 normal heart sound present and S2 normal heart sound present GI Palpation (GI): Soft to palpation and No hepatosplenomegaly present Extrem General: Yes normal to inspection and Yes full ROM Results AMB Hemoglobin A1c AMB Hemoglobin A1c 6.2 % Last Edit by DORIS South on 01/10/23 15:37 Results Reviewed Results Reviewed: Laboratory Last Values Hgb A1c (Clinic) 6.2 % (4.0-6.0) H 01/10/23 15:06 Assessment and Plan Assessment & Plan (1) Moderate to severe aortic stenosis: Code(s): I35.0 - Nonrheumatic aortic (valve) stenosis Plan: Patient is an appointment with social welfare research worker. I encouraged him to keep it. (2) BPH loc w urin obs/LUTS: Code(s): N40.1 - Benign prostatic hyperplasia with lower urinary tract symptoms Plan: Viral it is own has been discontinued. (3) Diabetes mellitus: Code(s): E11.9 - Type 2 diabetes mellitus without complications Orders: Orders AMB Hemoglobin A1c 01/10/23 E11.9 - Type 2 diabetes mellitus without complications Coding Level of Care Code Est Pt Level 3 (97280) Diagnoses Moderate to severe aortic stenosis I35.0 BPH loc w urin obs/LUTS N40.1 Diabetes mellitus E11.9
[2023-01-10 15:08] VITALS: BP 132/76; PULSE 71; O2SAT 98; BMI 31.6
== END 2023-01-10 15:52 | disposition home or self-care (01) ==
PROVIDERS: PCP Internal Medicine; Visit Provider Internal Medicine
DX: I35.0 Nonrheumatic aortic (valve) stenosis (principal); N40.1 Benign prostatic hyperplasia with lower urinary tract symptoms; E11.9 Type 2 diabetes mellitus without complications
CPT/HCPCS: 83036; 99213

== ENCOUNTER 2023-01-15 09:05 | Outpatient (REF) | payer MEDICARE, SELFPAY ==
[2023-01-15 11:26] LABS: Prothrombin Time 12.3 SEC (11.1-13.3)
[2023-01-15 11:29] LABS: Hematocrit 45.3 % (42.0-52.0); Hemoglobin 15.2 g/dl (14.0-18.0); Mean Corpuscular HGB Conc 33.6 g/dl (31.0-36.0); Mean Corpuscular Hemoglobin 32.6 pg (27.0-33.0); Mean Corpuscular Volume 97.2 fL (80.0-98.0); Mean Platelet Volume 10.4 fL (9.4-12.4); Platelet Count 176 X10*3/uL (160-400); Red Blood Count 4.66 X10*6/uL (4.60-5.80); Red Cell Distribution Width 12.8 % (11.0-16.0); White Blood Count 5.3 X10*3/uL (4.8-10.8)
[2023-01-15 11:46] LABS: B Type Natriuretic Peptide 142 pg/mL (<100)
[2023-01-15 12:02] LABS: Anion Gap 14 (12-20); Blood Urea Nitrogen 13 mg/dL (9-16); Calcium 10.4 mg/dL (8.4-10.2); Carbon Dioxide 30 mmol/L (22-29); Chloride 103 mmol/L (96-108); Estimated Glomerular Filt Rate > 60; Glucose Random 122 mg/dL (60-115); Sodium 142 mmol/L (135-145)
== END 2023-01-15 09:06 | disposition home or self-care (01) ==
LOC: HO.HMGCLDS 09:05
PROVIDERS: PCP Internal Medicine; Visit Provider Internal Medicine Cardiovascular Disease
DX: R06.02 Shortness of breath (principal)
CPT/HCPCS: 36415; 80048; 83880; 85027; 85610

== ENCOUNTER → 2023-01-24 23:59 | Outpatient (BNV) | payer MEDICARE, SELFPAY | PROVIDERS: PCP Internal Medicine; Visit Provider Internal Medicine Cardiovascular Disease | DX: I35.0 Nonrheumatic aortic (valve) stenosis (principal); I20.8 Other forms of angina pectoris; R06.00 Dyspnea, unspecified | CPT/HCPCS: 93460; 93566; 99152 ==

== ENCOUNTER → 2023-05-01 12:52 | Outpatient (REF) | payer MEDICARE, SELFPAY ==
--- NOTE | 2023-05-01 12:54 | CA_ITS ---
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 Mild to moderate LV systolic dysfunction with impaired relaxation pattern 2. Mildly dilated 3. Normally functioning bioprosthetic aortic valve with mean gradient of 8 mm of Hg 4. Normal RVSP 5. No pericardial effusion Findings Left Ventricle Normal left ventricular cavity size. There is mildly increased left ventricular wall thickness. The left ventricular systolic function is mild to moderately decreased. There is paradoxical septal motion consistent with post-operative status. Spectral Doppler is indicative of an impaired relaxation filling pattern. E/E prime ratio is between 8 and 15 consistent with indeterminate filling pressures. Right Ventricle Normal right ventricular cavity size. There is mildly decreased right ventricular systolic function. Atria The left atrium is mildly dilated. Interatrial shunt cannot be excluded. The right atrium is normal in size. Aortic Valve A bioprosthetic aortic valve is present. The prosthetic aortic valve appears to be functioning normally. The mean gradient is 8 mmHg. There is no aortic valve regurgitation. Mitral Valve There is mild anterior and posterior mitral leaflet thickening. There is trace mitral valve regurgitation. There is no mitral valve stenosis. Pulmonic Valve The pulmonic valve is likely normal. There is trace pulmonic valve regurgitation. Tricuspid Valve Likely normal tricuspid valve structure and function. There is trace tricuspid valve regurgitation. The right ventricular systolic pressure is normal. The right ventricular systolic pressure is 23 mmHg. Normal right atrial pressure. There is no evidence of pulmonary hypertension. Great Vessels The pulmonary artery was not well visualized. Venous The inferior vena cava is normal in size and collapses greater than 50% with inspiration. Pericardium/Pleural There is no evidence of pericardial effusion. Prior Study Comparison No change compared to prior study dated: 12/10/2022. Measurements 2D Linear Measurements IVSd: 1.32 0.6-0.9/0.6-1.0 cm LVIDd: 5.57 3.9-5.3/4.2-5.9 cm LVIDd Index: 2.58 2.4-3.2/2.2-3.1 cm/m2 LVIDs: 4.24 2.0-3.6 cm LVPWd: 1.38 0.7-1.1 cm Ao Root: 2.90 2.1-3.5 cm LA Diam: 5.00 2.7-3.8/3.0-4.0 cm LAIDs Index: 2.31 1.5-2.3 cm/m2 LV Mass: 408.51 67-162/88-224 g LV Mass Index: 189.13 43-95/49-115 g/m2 LVOT Diam: 2.00 3.0+(-)1.3 cm 2D Systolic Function EF 4C: 45.10 >55% EF 2C: 44.60 >55% EF BiP: 44.10 >55% Mitral Valve MV Pk E: 0.68 MV PK A: 0.77 MV Decel Time: 136.00 E/A: 0.90 E'Lateral: 7.94 E'Medial: 3.81 E/E' Med: 17.90 E/E' Lat: 8.60 PHT: 40.00 MVA PHT: 5.50 Decel [place]: 5.03 Aortic Valve AoV Pk Silvestre: 1.96 AoV Mn Silvestre: 1.33 AoV VTI: 0.40 AoV Pk Grad: 15.00 Aov Mn Grad: 8.00 NATHALIA Cont.VTI: 1.53 LVOT LVOT Pk Silvestre: 0.83 LVOT Mn Silvestre: 0.58 LVOT VTI: 0.20 LVOT Pk Grad: 3.00 LVOT Mn Grad: 2.00 LVOT Diam: 2.00 LVOT Area: 3.14 Diastolic Function MV Pk E: 0.68 MV Pk A: 0.77 E/A: 0.90 E'Medial: 3.81 E/E' Med: 17.90 E' Laterial: 7.94 E/E' Lat: 8.60 Right Ventricle TAPSE (mm): 17.00 TVS' Silvestre: 10.00 Tricuspid Valve TR Pk Silvestre: 2.24 TR Pk Grad: 20.00 RA Press: 3.00 RVSP: 23.00 Great Vessels Aorta Ao Root-2D: 2.90 2.0-3.7 cm Ao Asc: 3.60 2.1-3.4 cm Pulmonary Valve PV Pk Silvestre: 0.94 Peak PV Grad: 4.00 Updated in Other Vendor System with Status of Final Danny Garduno MD electronically signed on 05/02/2023 5:29:42 PM with status of Final
== END ==
LOC: HO.CARD 12:52
PROVIDERS: PCP Internal Medicine; Visit Provider Internal Medicine Cardiovascular Disease
DX: I35.0 Nonrheumatic aortic (valve) stenosis (principal); Z95.3 Presence of xenogenic heart valve
CPT/HCPCS: 93306

== ENCOUNTER → 2023-05-01 12:54 | Outpatient (BNV) | payer MEDICARE, SELFPAY | PROVIDERS: PCP Internal Medicine; Visit Provider Internal Medicine Cardiovascular Disease | DX: I34.89 Other nonrheumatic mitral valve disorders (principal); Z95.3 Presence of xenogenic heart valve | CPT/HCPCS: 93306 ==

== ENCOUNTER 2023-05-06 11:01 | Outpatient (AMB) | payer MEDICARE, SELFPAY ==
[2023-05-06 11:17] VITALS: BP 120/76; PULSE 77; BMI 31.3
--- NOTE | 2023-05-06 11:17 | A.OFFVIS_ITS ---
Intake Vital Signs 05/06/23 11:17 Height 5 ft 10 in Weight 218 lb 4.122 oz BMI 31.3 BP 120/76 Blood Pressure Location Lt brachial Position Sitting Pulse 77 Intake Visit Reasons: fu post [facility] cardiac surgery Intake Note: Follow-up post [facility] cardiac surgery feeling good Software Quality Manager Required: No E Commerce Director: E Commerce Director Present Accompanied by: Spouse Allergies No Known Allergies [No Known Allergies*] Allergy (Verified 01/25/23 18:35) Medication List - Last Reconciled 05/06/23 by Danny Garduno MD aspirin 81 mg PO DAILY atorvastatin 20 mg PO DAILY metformin ER 500 mg PO BID metoprolol succinate ER 50 mg PO DAILY HPI HPI Comments History of Present Illness Details Don comes for follow-up. Underwent 3 vessel coronary bypass grafting along with aortic valve replacement, 25 mm bioprosthetic valve. Feeling very well. No symptoms of shortness of breath. No orthopnea, PND, leg edema. Currently participating phase 2 cardiac rehabilitation. Denies any prolonged palpitation irregular heartbeat. No lightheadedness, syncope. No exertional ch est pain. Overall he says he feels well. Echocardiogram done recently shows normally function bioprosthetic aortic valve with [id number] LV systolic dysfunction. [facility] Medical History Moderate to severe aortic stenosis CAD (coronary artery disease) Mild ascending aorta dilatation Diabetes mellitus Polymyalgia rheumatica Surgical History S/P AVR S/P CABG x 3 History of bilateral cataract extraction History of nasal surgery History of inguinal hernia repair History of lumbar laminectomy Family History Father No problems noted. Mother No problems noted. Brother Esophageal cancer Social History Housing: House Alcohol intake: current Alcohol intake frequency: holidays/special occasions only Alcohol type: beer Patient Tobacco Use Status: Former Tobacco user Quit Date: 43 years ago e-Cigarette/Vaping Use: Never Used Second Hand Smoke Exposure: No service: No Current occupational status: retired Cognitive needs: No Hearing needs: No Vision needs: Yes (reading glasses) Review of Systems Const Denies chills, Denies fatigue, Denies fever(s), Denies frequent falls, Denies weakness, Denies weight gain and Denies weight loss ENT Denies dizziness Card Denies chest pain, Denies leg edema, Denies lightheadedness, Denies palpitations, Denies dyspnea, Denies dyspnea on exertion, Denies orthopnea and Denies other (loss of consciousness) Resp Denies cough, Denies dyspnea and Denies dyspnea on exertion GI Denies hematochezia and Denies change in stool character Musc Denies abnormal gait, Denies muscle weakness, Denies numbness, Denies radiating pain into limb and Denies tingling Neuro Denies Abnormal speech present, Denies abnormal gait, Denies dizziness, Denies frequent falls, Denies numbness, Denies tingling and Denies weakness Endo Denies fatigue and Denies palpitations Physical Exam Vital Signs: Last Vital Signs Pulse 77 05/06/23 11:17 BP 120/76 05/06/23 11:17 BMI result Body Mass Index 31.3 Const General: cooperative, comfortable, no acute distress, alert, awake, anxious and well groomed Nutritional Appearance: obese Orientation/consciousness: patient oriented x3 Limitations: no limitations HEENT Head: Yes normocephalic and Yes atraumatic Neck Neck: Yes trachea midline, Yes supple and Yes no JVD Chest Chest palpation & inspection: other (Well-healed sternotomy scar) Breast/axilla palpation: other Resp Effort & Inspection: normal respiratory effort Auscultation: clear to auscultation bilaterally Cardio Jugular venous distension: no JVD Palpation: normal PMI Rate: regular rate Rhythm: regular rhythm Heart sounds: S1 normal heart sound present, S2 normal heart sound present, no click, no gallops and no murmurs GI Inspection: Yes obesity Auscultation: normal bowel sounds Skin General skin exam: no rashes or lesions noted Neuro General: patient oriented x3 and no focal motor deficits Speech: No Abnormal speech present Extrem General: Yes no clubbing, cyanosis or edema Assessment & Plan Assessment & Plan (1) S/P AVR: Comment: 25 mm bioprosthetic AVR, 03/25. Code(s): Z95.2 - Presence of prosthetic heart valve Plan: Patient status post bioprosthetic aortic valve for aortic stenosis, doing very well from cardiac perspective continue phase 2 cardiac rehabilitation. Continue low-dose aspirin therapy for life. Continue aggressive vascular risk factor modification. SBE prophylaxis as per ACC/aha guidelines. Follow-up echocardiogram in a year's time. (2) CAD (coronary artery disease): Code(s): I25.10 - Atherosclerotic heart disease of [place] coronary artery without angina pectoris Plan: CAD status post 3 vessel coronary bypass grafting. Doing well with no symptoms of angina. No heart failure symptoms. Continue low-dose aspirin therapy for life. Continue statin therapy with target goal LDL less than 70 mg/dL. Advised lipid panel near future. Continue aggressive control blood pressure which is currently well optimized. Diabetes under your care with goal hemoglobin A1c less than 7%. Advised to call me with any worsening symptoms. Continue with phase 2 cardiac rehabilitation. (3) Cardiomyopathy: Code(s): I42.9 - Cardiomyopathy, unspecified Plan: Mild cardiomyopathy with LVEF of 40-45% without any signs or symptoms of heart failure. Continue metoprolol for neurohormonal modulation. Will add valsartan 40 mg to his regimen. Need for neurohormonal modulation was discussed advised to monitor blood pressure at home maintain a log the heart failure symptoms were discussed. Avoidance of salt loading was discussed. Will follow up in the clinic in 6 months time, sooner p.r.n.. Thank you for allowing me to partake in his care Orders: Orders Lipid Panel 2 Weeks I25.10 - Atherosclerotic heart disease of [place] coronary artery without angina pectoris Basic Metabolic Panel 2 Weeks I25.10 - Atherosclerotic heart disease of [place] coronary artery without angina pectoris Medications: New valsartan 40 mg PO DAILY 30 tabs 5RF I25.10 - Atherosclerotic heart disease of [place] coronary artery without angina pectoris Changed From atorvastatin 40 mg PO DAILY 30 tabs 2RF To atorvastatin 20 mg PO DAILY Coding Level of Care Code Est Pt Level 4 (16510) Diagnoses S/P AVR Z95.2 CAD (coronary artery disease) I25.10 Cardiomyopathy I42.9
== END 2023-05-06 11:48 | disposition home or self-care (01) ==
PROVIDERS: PCP Internal Medicine; Visit Provider Internal Medicine Cardiovascular Disease
DX: Z95.2 Presence of prosthetic heart valve (principal); I25.10 Atherosclerotic heart disease of native coronary artery without angina pectoris; I42.9 Cardiomyopathy, unspecified
CPT/HCPCS: 99214

== ENCOUNTER → 2023-05-06 11:01 | Outpatient (BNVA) | payer MEDICARE, SELFPAY | PROVIDERS: PCP Internal Medicine; Visit Provider Internal Medicine Cardiovascular Disease | DX: I25.10 Atherosclerotic heart disease of native coronary artery without angina pectoris (principal); I42.9 Cardiomyopathy, unspecified; Z95.2 Presence of prosthetic heart valve | CPT/HCPCS: 99212 ==

== ENCOUNTER 2023-05-20 08:39 | Outpatient (REF) | payer MEDICARE, SELFPAY ==
[2023-05-20 12:10] LABS: Anion Gap 13 (12-20); Blood Urea Nitrogen 14 mg/dL (9-16); Calcium 9.9 mg/dL (8.4-10.2); Carbon Dioxide 27 mmol/L (22-29); Chloride 105 mmol/L (96-108); Cholesterol 167 mg/dL (<200); Estimated Glomerular Filt Rate > 60; Glucose Random 133 mg/dL (60-115); HDL Cholesterol 47 mg/dL (>40); LDL Cholesterol Calculated 96 mg/dL (<100); Potassium 4.1 mmol/L (3.3-5.1); Sodium 141 mmol/L (135-145); Triglycerides 121 mg/dL (<150)
[2023-05-20 12:12] LABS: Creatinine Urine 290.64 mg/dL; Microalbum/Creatinine Ratio Ur 14.7 ug/mg cr (<30)
== END 2023-05-20 08:40 | disposition home or self-care (01) ==
LOC: HO.HMGCLDS 08:39
PROVIDERS: PCP Internal Medicine; Visit Provider Internal Medicine Cardiovascular Disease
DX: I25.10 Atherosclerotic heart disease of native coronary artery without angina pectoris (principal); E11.9 Type 2 diabetes mellitus without complications
CPT/HCPCS: 36415; 80048; 80061; 82043; 82570

== ENCOUNTER 2023-06-06 11:05 | Outpatient (AMB) | payer MEDICARE, SELFPAY ==
--- NOTE | 2023-06-06 11:19 | MHC.PC.OV ---
Vital Signs 06/06/23 11:23 Height 5 ft 10 in Weight 217 lb BMI 31.1 BP 130/76 Blood Pressure Location Lt brachial Position Sitting Respiration 17 Pulse 78 Pulse Source Palpation Intake Visit Reasons: post cardiac surgery Port Engineer Required: No Accompanied by: Self / Same As Patient Allergies No Known Allergies [No Known Allergies*] Allergy (Verified 06/06/23 11:44) Medication List - Last Reconciled 06/06/23 by Nathan Stephenson PA-C aspirin 81 mg PO DAILY metformin ER 500 mg PO BID metoprolol succinate ER 50 mg PO DAILY rosuvastatin (Crestor) 40 mg PO DAILY valsartan 40 mg PO DAILY Tobacco use date assessed: 06/06/23 Fall risk assessment: No Falls in past year Last assessed Fall Risk: 06/06/23 Dental Screening Dental Screen Date: 06/06/23 Did you have a dental visit in the last 12 months?: Yes Did you have a dental problem in the last 6 months where you did not have access to dental care?: No Was dental information given to patient?: Patient has dentist HPI post cardiac surgery HPI Details Patient is a 77 year male here today for follow-up visit. This is 1st time I am meeting this 77-year-old male with a past medical history significant for type 2 diabetes, coronary artery disease, aortic valve replacement, obesity, PMR. Recently underwent a coronary artery bypass and AVR at [facility]. Does come close was complicated by skin tears secondary to open heart surgery. He was not able to start Plavix. Has followed up with Cardiology in no recommendations to restart Plavix mentioned. Otherwise patient feels well from a cardiovascular standpoint. He denies any chest pain, palpitations, sternal pain or dizziness. [facility] Medical History Moderate to severe aortic stenosis CAD (coronary artery disease) Mild ascending aorta dilatation Diabetes mellitus Polymyalgia rheumatica Surgical History S/P AVR S/P CABG x 3 History of bilateral cataract extraction History of nasal surgery History of inguinal hernia repair History of lumbar laminectomy Family History Father No problems noted. Mother No problems noted. Brother Esophageal cancer Social History Housing: House Alcohol intake: current Alcohol intake frequency: holidays/special occasions only Alcohol type: beer Patient Tobacco Use Status: Former Tobacco user Quit Date: 43 years ago e-Cigarette/Vaping Use: Never Used Second Hand Smoke Exposure: No service: No Current occupational status: retired Cognitive needs: No Hearing needs: No Vision needs: Yes (reading glasses) Questionnaire PHQ-9 Over the last 2 weeks, how often have you been bothered by any of the following problems? 1. Little interest or pleasure in doing things: not at all 2. Feeling down, depressed, or hopeless: not at all 3. Trouble falling or staying asleep, or sleeping too much: not at all 4. Feeling tired or having little energy: not at all 5. Poor appetite or overeating: not at all 6. Feeling bad about yourself - or that you are a failure or have let yourself or your family down: not at all 7. Trouble concentrating on things, such as reading the newspaper or watching television: not at all 8. Moving or speaking so slowly that other people could have noticed. Or the opposite - being so fidgety or restless that you have been moving around a lot more than usual: not at all 9. Thoughts that you would be better off or of hurting yourself in some way: not at all Total score: 0 Depression Screening Interpretation: Negative Depression Screening Done: Yes 74791 - PHQ-9 Billing: Yes Source: Developed by Drs. Guillermo Jha, Christiane Alegria, Tim Delgado and colleagues, with an educational dante from [employer]. Thrive Questionnaire Date Thrive assessed: 06/06/23 I am a: Patient What is your living situation today?: I have a steady place to live Within the past 12 months, did the food you bought not last and you didn't have the money to get more?: Never true Within the past 12 months, did you worry whether your food would run out before you got money to buy more?: Never true Do you have trouble paying for medicines?: No Do you have trouble getting transportation to medical appointments?: No Do you have trouble paying your heating and electricity bill?: No Do you have trouble taking care of your child, family member or friend?: No Do you have trouble with day-to-day activities such as bathing, preparing meals, shopping, managing finances, etc.?: No Are you currently unemployed and looking for a job?: No Are you interested in more education?: No Please select the resources that you would like help with: None Currently or been in a relationship where the following occur: no concerns reported AUDIT C Alcohol Use Questionnaire (AUDIT-C) 1. How often do you have a drink containing alcohol?: Never Total Score: 0 FLACO-7 AMB Questionnaire FLACO-7 Date FLACO - 7 assessed: 06/06/23 Feeling nervous, anxious, or on edge: 0 = Not at all Not being able to stop or control worryin = Not at all Worrying too much about different things: 0 = Not at all Trouble relaxin = Not at all Being so restless that it is hard to sit still: 0 = Not at all Becoming easily annoyed or irritable: 0 = Not at all Feeling afraid as if something awful might happen: 0 = Not at all Total FLACO-7 score (0-4 normal; 5-9 mild; 10-14 moderate; 15-21 severe): 0 Source: Developed by Drs. Guillermo Jha, Christiane Alegria, Tim Delgado and colleagues, with an educational dante from [employer]. FLACO-7 Assessment Billing FLACO-7 Assessment Tool: FLACO-7 Assessment 94672 Review of Systems Const Denies headache(s) Eyes Denies loss of vision ENT Denies vertigo, Denies dizziness, Denies headache(s) and Denies sore throat Card Denies chest pain, Denies leg edema and Denies lightheadedness Resp Denies cough, Denies hemoptysis and Denies wheezing GI Denies abdominal pain, Denies melena, Denies constipation, Denies diarrhea and Denies vomiting Denies dysuria, Denies urinary frequency and Denies urinary urgency Musc Denies arthralgias, Denies joint swelling, Denies numbness and Denies tingling Neuro Denies Abnormal speech present, Denies behavioral changes, Denies vertigo, Denies dizziness, Denies headache(s), Denies loss of vision, Denies memory loss, Denies numbness and Denies tingling Psych Denies anxiety, Denies behavioral changes, Denies depression, Denies memory loss and Denies panic attacks Italo/Lymph Denies easy bleeding and Denies easy bruising Aller/Immun Denies wheezing Physical exam (Primary Care) Vital Signs: Last Vital Signs Pulse 78 06/06/23 11:23 Resp 17 06/06/23 11:23 BP 130/76 06/06/23 11:23 BMI result Body Mass Index 31.1 Tobacco/Smoking Status: Tobacco use Status Tobacco use date assessed 06/06/23 06/06/23 11:25 Patient Tobacco Use Status Former Tobacco user 06/06/23 11:20 e-Cigarette/Vaping Use Never Used 06/06/23 11:20 PHQ-9: PHQ-9 Score PHQ-9: Total score 0 06/06/23 11:45 Depression Screening Interpretation: Negative Thrive Assessment: Date of Thrive Assessment Date Thrive assessed 06/06/23 06/06/23 11:20 Currently or been in a relationship where the following occur: no concerns reported Const General: healthy appearing, no acute distress, alert and awake Nutritional Appearance: well nourished Orientation/consciousness: oriented to person, oriented to place and oriented to time HENMT Ears: TM's normal bilaterally General nose exam: Normal nasal mucous membranes and turbinates present Eyes Conjunctivae: conjunctivae normal Sclerae: sclerae normal Pupils: Equal, round and reactive pupils present Neck Neck: Yes no lymphadenopathy and Yes no JVD Thyroid: Thyroid normal Carotids: no bruits Chest Chest/axillae images: 1. GENERALLY WELL-HEALED STERNAL SCAR. * SMALL RAISED AREA OF HYPERTROPHIC SKIN ON THE PROXIMAL END OF HIS SURGICAL SCAR Resp Effort & Inspection: normal respiratory effort and not tachypneic Auscultation: no crackles, no rales, no rhonchi and no wheezes Cardio Rate: regular rate Rhythm: regular rhythm Heart sounds: no murmurs and normal S1 and S2 GI Palpation (GI): Soft to palpation, nontender, no hepatomegaly and no splenomegaly Auscultation: normal bowel sounds Skin General skin exam: no rashes or lesions noted and dry skin Neuro General: oriented to person, oriented to place and oriented to time Cranial nerves: Yes Equal, round and reactive pupils present Speech: No Abnormal speech present Gait exam (Neuro): Normal gait present Motor exam (neuro): no tremor noted Extrem Right upper extremity: full ROM Left upper extremity: full ROM Right lower extremity: full ROM; no edema Left lower extremity: full ROM; no edema Psych Mental Status: mental status grossly normal Speech and movement: Normal speech and movement present Affect: normal affect Attitude: cooperative Thought process: Normal thought process present Assessment and Plan Assessment & Plan (1) CAD (coronary artery disease): Code(s): I25.10 - Atherosclerotic heart disease of [place] coronary artery without angina pectoris Qualifiers: Associated angina: without angina Coronary Disease-Associated Artery/Lesion type: [place] artery [place] vs. transplanted heart: [place] heart Qualified Code(s): I25.10 - Atherosclerotic heart disease of [place] coronary artery without angina pectoris Plan: Patient is status post coronary artery bypass. Surgical scars well healed though still has some area over the proximal sternal surgical scar with all lump. Otherwise denies any angina, shortness of breath on exertion or dizziness. No obvious symptoms of congestive heart failure. Seen his clinical documentation clerk whom increased his potency of statin and started valsartan. (2) S/P AVR: Comment: 25 mm bioprosthetic AVR, 03/25. Code(s): Z95.2 - Presence of prosthetic heart valve Plan: Patient continues on 81mg aspirin. Was on Plavix though had complications while in hospital with skin tears and bruising. 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 Recent A1cs have been stable. Goal A1c is to remain below 7.0. Orders: Orders Lipid Panel 06/06/23 I25.10 - Atherosclerotic heart disease of [place] coronary artery without angina pectoris Complete Blood Count no Diff 06/06/23 E11.65 - Type 2 diabetes mellitus with hyperglycemia AMB Hemoglobin A1c 06/06/23 Z13.1 - Encounter for screening for diabetes mellitus Comprehensive [place]. Panel Fast 06/06/23 E11.65 - Type 2 diabetes mellitus with hyperglycemia Hemoglobin A1c 06/06/23 E11.65 - Type 2 diabetes mellitus with hyperglycemia Prostate Specific Antigen Scr 06/06/23 E11.65 - Type 2 diabetes mellitus with hyperglycemia, Z12.5 - Encounter for screening for malignant neoplasm of prostate Coding Level of Care Code Est Pt Level 4 (36327) Diagnoses Coronary artery disease involving [place] coronary artery of [place] heart without angina pectoris I25.10 Associated angina: without angina Coronary Disease-Associated Artery/Lesion type: [place] artery [place] vs. 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
[2023-06-06 11:23] VITALS: BP 130/76; PULSE 78; RESP 17; BMI 31.1
== END 2023-06-06 12:04 | disposition home or self-care (01) ==
PROVIDERS: PCP Internal Medicine; Visit Provider Physician Assistant
DX: E11.65 Type 2 diabetes mellitus with hyperglycemia (principal); I25.10 Atherosclerotic heart disease of native coronary artery without angina pectoris; Z95.2 Presence of prosthetic heart valve
CPT/HCPCS: 99214

== ENCOUNTER 2023-09-11 13:58 | Outpatient (AMB) | payer MEDICARE, SELFPAY ==
--- NOTE | 2023-09-11 14:06 | A.OFFVIS_ITS ---
Intake Visit Reasons: F/u Renal Cysts bilaterally, simple BPH Intake Note: Patient presents today for a follow-up on Renal Cyst Bilaterally & Simple BPH: Meds- None Allergies to Antibiotic- No Known Allergies Blood Thinner- Aspirin Post Void Residual: 24 mL Paradi Operator Required: No Accompanied by: Self / Same As Patient Allergies No Known Allergies [No Known Allergies*] Allergy (Verified 09/11/23 14:31) HPI Comments Details: 09/11/23--Bry is here in FU BPH and renal cysts. He states he is voiding without difficulty. Bladder scan PVR 24 mL. LV --12/12/22--Bry is a 77-year-old male who presents to the office for 2-month follow-up and discussion of CT scan results. CoMorbidity- Diabetes, denies previous stroke. Complex renal cyst bilaterally noted on renal sono. CAT scan abdomen with/without contrast was ordered. Office visit--07/18/22--complains over the last several months to year has noticed a change in urination, he is up 3-4 times to urinate at night. When he gets up from sitting he gets a strong urge and needs to pienda to the bathroom, Denies blood in the urine, denies dysuria. He is concerned about cancer. Patient declined prostate exam The patient states that his symptoms of urinary urgency have resolved and is having good urine flow. Will hold on Office Cystoscopy. Urinalysis today was negative. Renal US results were discussed and we are going to get further evaluation with CAT scan. Discussed PSA which was normal. Evaluation 10/12/22 UA-- Blood: negative, leukocytes: negative. Renal US results reviewed--08/01/22--findings of left kidney complex cyst measuring 7.9 cm, lower pole cyst measuring 0.92 cm and midpole cyst measures 1.2 and 2.6 cm. Right kidney midpole cyst measures 1.9 and complex cyst midpole measuring 1.7. PSA results reviewed--08/02/22--0.34. Plan:Complex renal cyst bilaterally. CAT scan abdomen with/without contrast was ordered. 12/12/22-- Evaluation today UA: Bladder scan PVR: 0 mL. Reviewed CAT scan--11/22/22--The CAT scan is consistent with simple cyst, no imaging follow-up recommended. 09/11/23--Plan: Renal Cysts bilaterally, simple. BPH not on meds denies voiding complaints. Follow-up prn [facility] Medical History Moderate to severe aortic stenosis CAD (coronary artery disease) Mild ascending aorta dilatation Diabetes mellitus Polymyalgia rheumatica Surgical History S/P AVR S/P CABG x 3 History of bilateral cataract extraction History of nasal surgery History of inguinal hernia repair History of lumbar laminectomy Family History Father No problems noted. Mother No problems noted. Brother Esophageal cancer Social History Housing: House Alcohol intake: current Alcohol intake frequency: holidays/special occasions only Alcohol type: beer Patient Tobacco Use Status: Former Tobacco user Quit Date: 43 years ago e-Cigarette/Vaping Use: Never Used Second Hand Smoke Exposure: No service: No Current occupational status: retired Cognitive needs: No Hearing needs: No Vision needs: Yes (reading glasses) Review of Systems Const All systems reviewed & are unremarkable except as noted in HPI and below Reports no additional complaints Eyes Reports no additional complaints ENT Reports no additional complaints Card Reports no additional complaints Resp Reports no additional complaints GI Reports no additional complaints Reports as per HPI Musc Reports no additional complaints Skin/Breast Reports system reviewed and no additional complaints, except as documented Neuro Reports no additional complaints Psych Reports no additional complaints Endo Reports no additional complaints Italo/Lymph Reports no additional complaints Aller/Immun Reports no additional complaints Office Procedures Post Void Residual Post Residual Void Post Void Residual (PVR): 24 27120-Ettm Void Residual by ultrasound Results AMB Urinalysis, Automated UA Leukoctes 0 Rubens/uL Last Edit by DORIS Schilling on 09/11/23 14:30 UA Nitrite Negative Last Edit by Milind Sanz [facility] on 09/11/23 14:30 UA Urobilinogen 0.2 mg/dL Last Edit by Milind Sanz [facility] on 09/11/23 14:3 0 UA Protein 30 mg/dL Last Edit by Milind Sanz [facility] on 09/11/23 14:30 1+ Milind Sanz 09/11/23 14:30 UA pH 5.5 Last Edit by Milind Sanz [facility] on 09/11/23 14:30 UA Blood 0 Gio/uL Last Edit by Milind Sanz [facility] on 09/11/23 14:30 UA Specific [place] 1.030 Last Edit by Milind Sanz [facility] on 09/11/23 14: 30 UA Ketone Negative Last Edit by Milind Sanz [facility] on 09/11/23 14:30 UA Bilirubin 0 mg/dL Last Edit by Milind Sanz [facility] on 09/11/23 14:30 UA Glucose 0 mg/dL Last Edit by Milind Sanz [facility] on 09/11/23 14:30 Results Reviewed Results Reviewed: Laboratory Last Values Urine pH (Auto) 5.5 09/11/23 14:10 Specific [place] (Auto) 1.030 09/11/23 14:10 Urine Protein (Auto) 30 mg/dL 09/11/23 14:10 Glucose (UA)(Auto) 0 mg/dL 09/11/23 14:10 Urine Ketones (Auto) Negative 09/11/23 14:10 Urine Blood (Auto) 0 Gio/uL 09/11/23 14:10 Urine Nitrite (Auto) Negative 09/11/23 14:10 Urine Bilirubin (Auto) 0 mg/dL 09/11/23 14:10 Urine Urobilinogen (Auto) 0.2 mg/dL 09/11/23 14:10 Leukocyte Esterase (Auto) 0 Rubens/uL 09/11/23 14:10 Date of Service: 11/22/22 EXAMINATION: CT ABDOMEN AND PELVIS WITHOUT AND WITH CONTRAST CLINICAL INFORMATION: Kidney cyst COMPARISON: Previous renal ultrasound August 2022, abdominal ultrasound April 2017 TECHNIQUE: Multidetector volumetric imaging was performed of the abdomen and pelvis before and after the IV administration of 85 mL of Omnipaque 300 intravenous contrast. Sagittal and coronal reformatted images were obtained on the technologist's workstation. This CT examination was performed using dose optimization techniques as appropriate, variously including the following: *Automated exposure control *Adjustment of mA and/or kV according to patient size (this includes techniques or standardized protocols for targeted exams where dose is matched to indication/reason for exam; i.e. extremities or head) *Use of iterative reconstruction technique DLP: 1233 mGy-cm FINDINGS: LUNG BASES: 3 mm calcified right lower lobe nodule. The lungs are otherwise clear. LIVER, GALLBLADDER, AND BILIARY TREE: Question mild cirrhotic changes of the liver. No focal liver lesion. Normal gallbladder. No biliary duct dilatation. PANCREAS: Unremarkable SPLEEN: Unremarkable ADRENAL GLANDS: Unremarkable KIDNEYS AND URETERS: Multiple bilateral simple appearing renal cysts. Largest cysts exophytic to the upper pole of the left kidney and measures 6.3 x 7.8 cm. No imaging follow-up recommended. No renal stone, mass or hydronephrosis. BLADDER: Unremarkable GASTROINTESTINAL TRACT: Diverticulosis of the colon. No evidence of diverticulitis. Small and large bowel is otherwise unremarkable. The appendix is unremarkable. ABDOMINAL WALL: Right inguinal hernia containing fat. Small umbilical hernia containing fat LYMPH NODES: Normal VASCULAR: Atherosclerotic disease. No aneurysm. Portal vein is prominent measuring 1.7 cm. There are small upper abdominal varices. No ascites. PELVIC VISCERA: Unremarkable OSSEOUS STRUCTURES: Degenerative changes of the spine. IMPRESSION: Multiple bilateral simple renal cysts. No imaging follow-up recommended. Mild cirrhotic changes of the liver. Diverticulosis. Assessment & Plan Assessment & Plan (1) Simple renal cyst: Code(s): N28.1 - Cyst of kidney, acquired Category: Medical (2) BPH (benign prostatic hyperplasia): Code(s): N40.0 - Benign prostatic hyperplasia without lower urinary tract symptoms Category: Medical Plan FU prn Orders: Orders AMB Urinalysis Automated 09/11/23 Z13.9 - Encounter for screening, unspecified AMB Post Void Residual by ultrasound 09/11/23 N39.8 - Other specified disorders of urinary system Coding Level of Care Code Est Pt Level 3 (77141) Diagnoses Simple renal cyst N28.1 BPH (benign prostatic hyperplasia) N40.0 CPT Codes Post Residual Void - PVR CPT Code: 78210-Mnqc Void Residual by ultrasound ([id number])
== END 2023-09-11 15:04 | disposition home or self-care (01) ==
PROVIDERS: PCP Internal Medicine; Visit Provider Urology
DX: N28.1 Cyst of kidney, acquired (principal); N40.0 Benign prostatic hyperplasia without lower urinary tract symptoms
CPT/HCPCS: 99213

== ENCOUNTER → 2023-09-11 13:58 | Outpatient (BNVA) | payer MEDICARE, SELFPAY | PROVIDERS: PCP Internal Medicine; Visit Provider Urology | DX: N40.0 Benign prostatic hyperplasia without lower urinary tract symptoms (principal); N28.1 Cyst of kidney, acquired | CPT/HCPCS: 51798; 81003; 99212 ==

== ENCOUNTER 2023-11-14 12:58 | Outpatient (AMB) | payer MEDICARE, SELFPAY ==
[2023-11-14 13:05] VITALS: BP 116/80; PULSE 73
--- NOTE | 2023-11-14 13:05 | A.OFFVIS_ITS ---
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 He has been doing very well and says he feels like he was about 20 years ago feeling no symptoms of shortness of breath. Denies any angina, fatigue, lightheadedness, syncope. No prolonged palpitation irregular heartbeat. He said he still has some drainage coming from the sternal wound when he presses on it every couple of weeks. No fever or chills. No redness around the site. No pain at the site. Takes all his medications. Complains of easy bruising. No major bleeding issues. [facility] Medical History Moderate to severe aortic stenosis CAD (coronary artery disease) Mild ascending aorta dilatation Diabetes mellitus Polymyalgia rheumatica Surgical History S/P AVR S/P CABG x 3 History of bilateral cataract extraction History of nasal surgery History of inguinal hernia repair History of lumbar laminectomy Family History Father No problems noted. Mother No problems noted. Brother Esophageal cancer Social History Housing: House Alcohol intake: current Alcohol intake frequency: holidays/special occasions only Alcohol type: beer Patient Tobacco Use Status: Former Tobacco user e-Cigarette/Vaping Use: Never Used Second Hand Smoke Exposure: No service: No Current occupational status: retired Cognitive needs: No Hearing needs: No Vision needs: Yes (reading glasses) Review of Systems Const Denies chills, Denies fatigue, Denies fever(s), Denies frequent falls, Denies weakness, Denies weight gain and Denies weight loss ENT Denies dizziness Card Denies chest pain, Denies leg edema, Denies lightheadedness, Denies palpitations, Denies dyspnea, Denies dyspnea on exertion, Denies orthopnea and Denies other (loss of consciousness) Resp Denies cough, Denies dyspnea and Denies dyspnea on exertion GI Denies hematochezia and Denies change in stool character Musc Denies abnormal gait, Denies muscle weakness, Denies numbness, Denies radiating pain into limb and Denies tingling Neuro Denies Abnormal speech present, Denies abnormal gait, Denies dizziness, Denies frequent falls, Denies numbness, Denies tingling and Denies weakness Endo Denies fatigue and Denies palpitations Physical Exam Vital Signs: Last Vital Signs Pulse 73 11/14/23 13:05 BP 116/80 11/14/23 13:05 BMI result Body Mass Index 30.0 Const General: cooperative, comfortable, no acute distress, alert, awake, anxious and well groomed Nutritional Appearance: obese Orientation/consciousness: patient oriented x3 Limitations: no limitations HEENT Head: Yes normocephalic and Yes atraumatic Neck Neck: Yes trachea midline, Yes supple and Yes no JVD Resp Effort & Inspection: normal respiratory effort Auscultation: clear to auscultation bilaterally Cardio Jugular venous distension: no JVD Palpation: normal PMI Rate: regular rate Rhythm: regular rhythm Heart sounds: S1 normal heart sound present, S2 normal heart sound present ( soft), no click, no gallops and Murmur heart sound present systolic late, decrescendo and crescendo GI Inspection: Yes obesity Auscultation: normal bowel sounds Skin General skin exam: no rashes or lesions noted Neuro General: patient oriented x3 and no focal motor deficits Speech: No Abnormal speech present Extrem General: Yes no clubbing, cyanosis or edema Assessment & Plan Assessment & Plan (1) CAD (coronary artery disease): Code(s): I25.10 - Atherosclerotic heart disease of [place] coronary artery without angina pectoris Category: Medical Qualifiers: Associated angina: without angina Coronary Disease-Associated Artery/Lesion type: [place] artery [place] vs. transplanted heart: [place] heart Qualified Code(s): I25.10 - Atherosclerotic heart disease of [place] coronary artery without angina pectoris Plan: CAD status post coronary artery bypass grafting for critical coronary artery disease. Continue participate in physical activity as tolerated. Continue lifelong aspirin therapy. Continue current blood pressure control which is currently well optimized. Target goal blood pressure less than 130/84. Still continues to have oozing and fluid collection every couple of weeks. Question chronic infection. Have sent a message to Dr. Mariusz Faye regarding need to check him out in the near future. Continue high-intensity statin therapy with target goal LDL less than 70 mg/dL. Continue aggressive diabetes management as well. (2) Cardiomyopathy: Code(s): I42.9 - Cardiomyopathy, unspecified Category: Medical Plan: [id number] LV systolic dysfunction secondary to cardiomyopathy most likely ischemic. Clinically without any signs of heart failure. Importance of neurohormonal modulation discussed. Continue valsartan and metoprolol therapy. Signs and symptoms of heart failure were discussed. Follow-up echocardiogram in 6 months time. (3) S/P AVR: Comment: 25 mm bioprosthetic AVR, 03/25. Code(s): Z95.2 - Presence of prosthetic heart valve Category: Surgical Plan: Status post bioprosthetic aortic valve replacement, clinically appears to be working well. Continue aggressive risk factor modification above. Continue low-dose aspirin therapy. SBE prophylaxis as per ACC/[facility] guidelines. Follow-up echocardiogram 6 months time. Will follow up in the clinic in 6 months time, sooner p.r.n.. Thank you for allowing me to partake in his care Medications: Changed From metformin ER 500 mg PO BID 180 tabs 1RF To metformin ER 1,000 mg PO ONCE Coding Level of Care Code Est Pt Level 4 (32991) Diagnoses Coronary artery disease involving [place] coronary artery of [place] heart without angina pectoris I25.10 Associated angina: without angina Coronary Disease-Associated Artery/Lesion type: [place] artery [place] vs. transplanted heart: [place] heart Cardiomyopathy I42.9 S/P AVR Z95.2
== END 2023-11-14 13:34 | disposition home or self-care (01) ==
PROVIDERS: PCP Internal Medicine; Visit Provider Internal Medicine Cardiovascular Disease
DX: I25.10 Atherosclerotic heart disease of native coronary artery without angina pectoris (principal); I42.9 Cardiomyopathy, unspecified; Z95.2 Presence of prosthetic heart valve
CPT/HCPCS: 99214

== ENCOUNTER → 2023-11-14 12:58 | Outpatient (BNVA) | payer MEDICARE, SELFPAY | PROVIDERS: PCP Internal Medicine; Visit Provider Internal Medicine Cardiovascular Disease | DX: I25.10 Atherosclerotic heart disease of native coronary artery without angina pectoris (principal); I42.9 Cardiomyopathy, unspecified; Z95.2 Presence of prosthetic heart valve | CPT/HCPCS: 99212 ==

== ENCOUNTER 2024-01-06 13:23 | Outpatient (AMB) | payer MEDICARE, SELFPAY ==
[2024-01-06 13:23] VITALS: BP 114/62; PULSE 73; O2SAT 98; BMI 29.7
--- NOTE | 2024-01-06 13:23 | MHC.PC.OV ---
Vital Signs 01/06/24 13:23 Height 5 ft 10 in Weight 207 lb 0.7 oz BMI 29.7 BP 114/62 Blood Pressure Location Lt brachial Position Sitting Pulse 73 Pulse Source Pulse Oximeter Pulse Oximetry (%) 98 Oxygen Delivery Method Room Air Intake Visit Reasons: PE Professor Of English Required: No Allergies No Known Allergies [No Known Allergies*] Allergy (Verified 01/06/24 14:16) Medication List - Last Reconciled 01/06/24 by Thomas Gonzales MD aspirin 81 mg PO DAILY grape seed extract 150 mg PO DAILY metformin ER 1,000 mg PO ONCE metoprolol succinate ER 50 mg PO DAILY multivitamin 1 tab PO DAILY omega 0-ytd-byn-fish oil 1,200 (144-216) mg (Fish Oil) caps PO rosuvastatin (Crestor) 40 mg PO DAILY valsartan 40 mg PO DAILY Tobacco use date assessed: 06/06/23 Fall risk assessment: No Falls in past year Last assessed Fall Risk: 01/06/24 Dental Screening Dental Screen Date: 06/06/23 Did you have a dental visit in the last 12 months?: Yes Did you have a dental problem in the last 6 months where you did not have access to dental care?: No Was dental information given to patient?: Patient has dentist HPI PE HPI Details 78-year-old male presents to the office requesting an annual physical. [facility] Medical History (Updated 01/06/24 @ 14:18 by Thomas Gonzales MD) Moderate to severe aortic stenosis CAD (coronary artery disease) Mild ascending aorta dilatation Diabetes mellitus Polymyalgia rheumatica Surgical History S/P AVR S/P CABG x 3 History of bilateral cataract extraction History of nasal surgery History of inguinal hernia repair History of lumbar laminectomy Family History Father No problems noted. Mother No problems noted. Brother Esophageal cancer Social History Housing: House Alcohol intake: current Alcohol intake frequency: holidays/special occasions only Alcohol type: beer Patient Tobacco Use Status: Former Tobacco user e-Cigarette/Vaping Use: Never Used Second Hand Smoke Exposure: No service: No Current occupational status: retired Cognitive needs: No Hearing needs: No Vision needs: Yes (reading glasses) Questionnaire PHQ-9 Over the last 2 weeks, how often have you been bothered by any of the following problems? 1. Little interest or pleasure in doing things: not at all 2. Feeling down, depressed, or hopeless: not at all 3. Trouble falling or staying asleep, or sleeping too much: not at all 4. Feeling tired or having little energy: not at all 5. Poor appetite or overeating: not at all 6. Feeling bad about yourself - or that you are a failure or have let yourself or your family down: not at all 7. Trouble concentrating on things, such as reading the newspaper or watching television: not at all 8. Moving or speaking so slowly that other people could have noticed. Or the opposite - being so fidgety or restless that you have been moving around a lot more than usual: not at all 9. Thoughts that you would be better off or of hurting yourself in some way: not at all Total score: 0 Depression Screening Interpretation: Negative Depression Screening Done: Yes 68275 - PHQ-9 Billing: Yes Source: Developed by Drs. Guillermo Jha, Christiane Alegria, Tim Delgado and colleagues, with an educational dante from [employer]. Thrive Questionnaire Date Thrive assessed: 06/06/23 AUDIT C Alcohol Use Questionnaire (AUDIT-C) 1. How often do you have a drink containing alcohol?: Never Total Score: 0 FLACO-7 AMB Questionnaire FLACO-7 Date FLACO - 7 assessed: 06/06/23 Feeling nervous, anxious, or on edge: 0 = Not at all Not being able to stop or control worryin = Not at all Worrying too much about different things: 0 = Not at all Trouble relaxin = Not at all Being so restless that it is hard to sit still: 0 = Not at all Becoming easily annoyed or irritable: 0 = Not at all Feeling afraid as if something awful might happen: 0 = Not at all Total FLACO-7 score (0-4 normal; 5-9 mild; 10-14 moderate; 15-21 severe): 0 Source: Developed by Drs. Guillermo Jha, Christiane Alegria, Tim Delgado and colleagues, with an educational dante from [employer]. FLACO-7 Assessment Billing FLACO-7 Assessment Tool: FLACO-7 Assessment 37513 Physical exam (Primary Care) Vital Signs: Last Vital Signs Pulse 73 01/06/24 13:23 BP 114/62 01/06/24 13:23 Pulse Ox 98 01/06/24 13:23 Oxygen Delivery Method Room Air 01/06/24 13:23 Care Plan Goal for BP management: Blood pressure is in range. BMI result Body Mass Index 29.7 Tobacco/Smoking Status: Tobacco use Status Tobacco use date assessed 06/06/23 01/06/24 13:24 Patient Tobacco Use Status Former Tobacco user 01/06/24 13:24 e-Cigarette/Vaping Use Never Used 01/06/24 13:24 PHQ-9: PHQ-9 Score PHQ-9: Total score 0 01/06/24 13:45 Depression Screening Interpretation: Negative Thrive Assessment: Date of Thrive Assessment Date Thrive assessed 06/06/23 01/06/24 13:24 Advance Care Planning discussion: Exists, not on file Date of discussion: 01/06/24 Who was present: Patient and his . Forms completed: Health Care Proxy Const General: cooperative and healthy appearing Nutritional Appearance: well nourished Orientation/consciousness: patient oriented x3 Limitations: no limitations HENMT Head: Yes normal to inspection Eyes General: appearance normal, both eyes and all related structures Neck Neck: Yes normal visual inspection Chest Chest palpation & inspection: normal palpation of entire chest wall Resp Effort & Inspection: normal respiratory effort Neuro General: patient oriented x3 Extrem Other: Superficial bruising over the lower extremities. 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 Continue metformin at same dosage. (2) Cardiomyopathy: Code(s): I42.9 - Cardiomyopathy, unspecified Plan: Condition is stable. (3) Annual physical exam: Code(s): Z00.00 - Encounter for general adult medical examination without abnormal findings Plan: Fasting blood work has been requested. We will adjust medications accordingly. (4) Mild ascending aorta dilatation: Comment: Noted on Echo December 2022. 3.9cm Code(s): I77.810 - Thoracic aortic ectasia Plan: Condition is stable. (5) Polymyalgia rheumatica: Code(s): M35.3 - Polymyalgia rheumatica Plan: Condition is stable. Orders: Orders Complete Blood Count no Diff Today E11.65 - Type 2 diabetes mellitus with hyperglycemia, I42.9 - Cardiomyopathy, unspecified Lipid Panel Today E11.65 - Type 2 diabetes mellitus with hyperglycemia, I42.9 - Cardiomyopathy, unspecified AMB Hemoglobin A1c Today E11.65 - Type 2 diabetes mellitus with hyperglycemia Basic Metabolic Panel Today E11.65 - Type 2 diabetes mellitus with hyperglycemia, I42.9 - Cardiomyopathy, unspecified Liver Panel Today E11.65 - Type 2 diabetes mellitus with hyperglycemia, I42.9 - Cardiomyopathy, unspecified Thyroid Stimulating Hormone Today E11.65 - Type 2 diabetes mellitus with hyperglycemia, I42.9 - Cardiomyopathy, unspecified UA and rflx microscopic Today E11.65 - Type 2 diabetes mellitus with hyperglycemia, I42.9 - Cardiomyopathy, unspecified Coding Level of Care Code Est Pt Prev Care >65y(11604) Diagnoses Type 2 diabetes mellitus with hyperglycemia, without long-term current use of insulin E11.65 Diabetes mellitus type: type 2 Diabetes mellitus residential insulin use: without residential use Diabetes mellitus complication status: with hyperglycemia Cardiomyopathy I42.9 Annual physical exam Z00.00 Mild ascending aorta dilatation I77.810 Polymyalgia rheumatica M35.3 Additional Codes FLACO-7 Assessment Billing - FLACO-7 Assessment Tool: FLACO-7 Assessment 77072 ([id number]) Vital Signs *Quality* - Advance Care Planning discussion: Exists, not on file ([id number])
== END 2024-01-06 14:11 | disposition home or self-care (01) ==
PROVIDERS: PCP Internal Medicine; Visit Provider Internal Medicine
DX: Z00.00 Encounter for general adult medical examination without abnormal findings (principal); E11.65 Type 2 diabetes mellitus with hyperglycemia; I42.9 Cardiomyopathy, unspecified; I77.810 Thoracic aortic ectasia; M35.3 Polymyalgia rheumatica
CPT/HCPCS: 1123F; 83036; 99397

== ENCOUNTER → 2024-05-04 13:53 | Outpatient (REF) | payer MEDICARE, SELFPAY ==
--- NOTE | 2024-05-04 13:55 | CA_ITS ---
Transthoracic Echocardiogram Patient (Last, First, Middle): Bry Martinez R Gender: Male Date of : 1945 Age: 79 Procedure Date: 05/04/2024 Procedure Type: Transthoracic Echocardiogram Location: OP Height: 180. cm Weight: 91.63 kg BSA: 2.11 m2 Heart Rate: 63 bpm BP: 138 / 60 mmHg Community Liaison Officer: YOLIS Referring MD: Danny Garduno MD Symptoms: Z95.2 - Presence of prosthetic heart valve Study Quality: Fair ECG Rhythm: Sinus Conclusions: - The left ventricular systolic function is normal. The visually estimated ejection fraction is between 50-55%. - A bioprosthetic aortic valve is present. The prosthetic aortic valve appears to be functioning normally. - Suspect basal to mid inferolateral hypokinesis, but difficult to assess. - There is mild dilatation of the ascending aorta measuring 4.20 cm. Findings Procedure Information Contrast agent, definity, is being given per protocol with complications as noted. The patient experienced back pain from contrast. Left Ventricle Normal left ventricular cavity size. There is mildly increased left ventricular wall thickness. The left ventricular systolic function is normal. The visually estimated ejection fraction is between 50-55%. There is paradoxical septal motion consistent with post-operative status. Evidence suggests grade I (mild) diastolic dysfunction. There is severe septal and severe basal asymmetric hypertrophy. Suspect basal to mid inferolateral hypokinesis, but difficult to assess. Right Ventricle Mildly increased right ventricular cavity size. There is mildly decreased right ventricular systolic function. Atria Both atria are normal in size. Aortic Valve A bioprosthetic aortic valve is present. The prosthetic aortic valve appears to be functioning normally. There is no aortic valve regurgitation. Mitral Valve There is mild mitral annular calcification. There is mild mitral valve regurgitation. There is no mitral valve stenosis. Pulmonic Valve The pulmonic valve is likely normal. Tricuspid Valve There is mild tricuspid valve regurgitation. There is no evidence of pulmonary hypertension. Great Vessels The aortic arch is normal in size. There is mild dilatation of the ascending aorta measuring 4.20 cm. Venous The inferior vena cava is normal in size and collapses greater than 50% with inspiration. Pericardium/Pleural There is no evidence of pericardial effusion. Prior Study Comparison No significant change compared to prior study dated: 05/01/2023. Measurements 2D Linear Measurements IVSd: 1.55 0.6-0.9/0.6-1.0 cm LVIDd: 4.22 3.9-5.3/4.2-5.9 cm LVIDd Index: 2.00 2.4-3.2/2.2-3.1 cm/m2 LVIDs: 3.77 2.0-3.6 cm LVPWd: 1.20 0.7-1.1 cm LA Diam: 5.90 2.7-3.8/3.0-4.0 cm LAIDs Index: 2.80 1.5-2.3 cm/m2 LV Mass: 274.00 67-162/88-224 g LV Mass Index: 129.86 43-95/49-115 g/m2 LVOT Diam: 2.00 3.0+(-)1.3 cm 2D Systolic Function EF 4C: 51.40 >55% EF 2C: 55.00 >55% EF BiP: 54.60 >55% Mitral Valve MV Pk E: 0.66 MV PK A: 0.66 MV Decel Time: 262.00 E/A: 1.00 E'Lateral: 6.74 E'Medial: 5.22 E/E' Med: 12.60 E/E' Lat: 9.70 PHT: 77.00 MVA PHT: 2.86 Decel Geary: 2.50 Aortic Valve AoV Pk Silvestre: 1.88 AoV Mn Silvestre: 1.35 AoV VTI: 0.41 AoV Pk Grad: 14.00 Aov Mn Grad: 8.00 NATHALIA Cont.VTI: 1.66 LVOT LVOT Pk Silvestre: 0.99 LVOT Mn Silvestre: 0.68 LVOT VTI: 0.21 LVOT Pk Grad: 4.00 LVOT Mn Grad: 2.00 LVOT Diam: 2.00 LVOT Area: 3.14 Diastolic Function MV Pk E: 0.66 MV Pk A: 0.66 E/A: 1.00 E'Medial: 5.22 E/E' Med: 12.60 E' Laterial: 6.74 E/E' Lat: 9.70 Right Ventricle TAPSE (mm): 14.60 TVS' Silvestre: 9.57 Tricuspid Valve TR Pk Silvestre: 2.16 TR Pk Grad: 19.00 RA Press: 8.00 RVSP: 27.00 Great Vessels Aorta Sinus of Valsalva: 3.70 2.0-3.5 cm Ao Asc: 4.20 2.1-3.4 cm Ao Arch: 3.50 Pulmonary Valve PV Pk Silvestre: 0.98 Peak PV Grad: 4.00 Updated in Other Vendor System with Status of Final Zachary Vidales MD electronically signed on 05/05/2024 12:42:17 PM with status of Final
== END ==
LOC: HO.CARD 13:53
PROVIDERS: PCP Internal Medicine; Visit Provider Internal Medicine Cardiovascular Disease
DX: Z95.2 Presence of prosthetic heart valve (principal)
CPT/HCPCS: 93306; Q9957

== ENCOUNTER → 2024-05-04 13:55 | Outpatient (BNV) | payer MEDICARE, SELFPAY | PROVIDERS: PCP Internal Medicine; Visit Provider Internal Medicine | DX: I42.2 Other hypertrophic cardiomyopathy (principal); Z95.3 Presence of xenogenic heart valve; I34.0 Nonrheumatic mitral (valve) insufficiency; I36.1 Nonrheumatic tricuspid (valve) insufficiency | CPT/HCPCS: 93306 ==

== ENCOUNTER 2024-05-12 12:34 | Outpatient (AMB) | payer MEDICARE, SELFPAY ==
[2024-05-12 12:47] VITALS: BP 126/74; PULSE 74
--- NOTE | 2024-05-12 12:47 | MHC.OFFVIS ---
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 He has not had any significant cardiac symptoms. Most recent echocardiogram shows improved LV ejection fraction 50-55%. He has prosthetic aortic valve is working well. He denies any exertional chest pain. Complains of bruising and easy bleeding although he does participate in a lot of work outside and seems to get superficial injury. No heart failure symptoms. No orthopnea, PND, leg edema. No exertional chest pain. No lightheadedness, syncope. No prolonged palpitation irregular heartbeat. Takes all his medications. [facility] Medical History Moderate to severe aortic stenosis CAD (coronary artery disease) Mild ascending aorta dilatation Diabetes mellitus Polymyalgia rheumatica Surgical History S/P AVR S/P CABG x 3 History of bilateral cataract extraction History of nasal surgery History of inguinal hernia repair History of lumbar laminectomy Family History Father No problems noted. Mother No problems noted. Brother Esophageal cancer Social History Housing: House Alcohol intake: current Alcohol intake frequency: holidays/special occasions only Alcohol type: beer Patient Tobacco Use Status: Former Tobacco user e-Cigarette/Vaping Use: Never Used Second Hand Smoke Exposure: No service: No Current occupational status: retired Cognitive needs: No Hearing needs: No Vision needs: Yes (reading glasses) Review of Systems Const Denies chills, Denies fatigue, Denies fever(s), Denies frequent falls, Denies weakness, Denies weight gain and Denies weight loss ENT Denies dizziness Card Denies chest pain, Denies leg edema, Denies lightheadedness, Denies palpitations, Denies dyspnea, Denies dyspnea on exertion, Denies orthopnea and Denies other (loss of consciousness) Resp Denies cough, Denies dyspnea and Denies dyspnea on exertion GI Denies hematochezia and Denies change in stool character Musc Denies abnormal gait, Denies muscle weakness, Denies numbness, Denies radiating pain into limb and Denies tingling Neuro Denies Abnormal speech present, Denies abnormal gait, Denies dizziness, Denies frequent falls, Denies numbness, Denies tingling and Denies weakness Endo Denies fatigue and Denies palpitations Physical Exam Vital Signs: Last Vital Signs Pulse 74 05/12/24 12:47 BP 126/74 05/12/24 12:47 BMI result Body Mass Index 30.0 Const General: cooperative, comfortable, no acute distress, alert, awake, anxious and well groomed Nutritional Appearance: obese Orientation/consciousness: patient oriented x3 Limitations: no limitations HEENT Head: Yes normocephalic and Yes atraumatic Neck Neck: Yes trachea midline, Yes supple and Yes no JVD Resp Effort & Inspection: normal respiratory effort Auscultation: clear to auscultation bilaterally Cardio Jugular venous distension: no JVD Palpation: normal PMI Rate: regular rate Rhythm: regular rhythm Heart sounds: S1 normal heart sound present, S2 normal heart sound present ( soft), no click, no gallops and Murmur heart sound present systolic late, decrescendo and crescendo GI Inspection: Yes obesity Auscultation: normal bowel sounds Skin General skin exam: no rashes or lesions noted Neuro General: patient oriented x3 and no focal motor deficits Speech: No Abnormal speech present Extrem General: Yes no clubbing, cyanosis or edema Assessment & Plan Assessment & Plan (1) CAD (coronary artery disease): Code(s): I25.10 - Atherosclerotic heart disease of [place] coronary artery without angina pectoris Category: Medical Qualifiers: Coronary Disease-Associated Artery/Lesion type: [place] artery [place] vs. transplanted heart: [place] heart Associated angina: without angina Qualified Code(s): I25.10 - Atherosclerotic heart disease of [place] coronary artery without angina pectoris Plan: CAD status post coronary artery bypass grafting. Clinically doing well without any symptoms of angina. LV systolic function has improved. Continue aggressive medical therapy. Continue low-dose aspirin therapy for life. Continue aggressive blood pressure control which is currently well optimized. Continue diabetes management with goal hemoglobin A1c less than 7%. Continue high-intensity statin therapy. Advised lipid panel near future. Target goal LDL less than 70 mg/dL. (2) S/P AVR: Comment: 25 mm bioprosthetic AVR, 03/25. Code(s): Z95.2 - Presence of prosthetic heart valve Category: Surgical Plan: Status post aortic valve replacement, bioprosthetic working well. Clinically doing much better. Continue low-dose aspirin therapy. Continue aggressive vascular risk factor modifications above. SBE prophylaxis as per ACC/[place] guidelines was discussed. (3) Cardiomyopathy: Code(s): I42.9 - Cardiomyopathy, unspecified Category: Medical Plan: Cardiomyopathy process, multifactorial has improved with medical therapy. No signs or symptoms of heart failure. BNP is improved. Continue current neurohormonal modulation with metoprolol and valsartan therapy. Signs and symptoms of heart failure were discussed. Follow-up echocardiogram in 1 year's time. Will follow up in the clinic in 6 months time, sooner p.r.n.. Thank you for allowing me to partake in his care Orders: Orders Lipid Panel Today I25.10 - Atherosclerotic heart disease of [place] coronary artery without angina pectoris Coding Level of Care Code Est Pt Level 4 (23340) Complex EM visit Add On G2211 Diagnoses Coronary artery disease involving [place] coronary artery of [place] heart without angina pectoris I25.10 Coronary Disease-Associated Artery/Lesion type: [place] artery [place] vs. transplanted heart: [place] heart Associated angina: without angina S/P AVR Z95.2 Cardiomyopathy I42.9
== END 2024-05-12 13:15 | disposition home or self-care (01) ==
PROVIDERS: PCP Internal Medicine; Visit Provider Internal Medicine Cardiovascular Disease
DX: I25.10 Atherosclerotic heart disease of native coronary artery without angina pectoris (principal); Z95.2 Presence of prosthetic heart valve; I42.9 Cardiomyopathy, unspecified
CPT/HCPCS: 99214; G2211

== ENCOUNTER → 2024-05-12 12:34 | Outpatient (BNVA) | payer MEDICARE, SELFPAY | PROVIDERS: PCP Internal Medicine; Visit Provider Internal Medicine Cardiovascular Disease | DX: I25.10 Atherosclerotic heart disease of native coronary artery without angina pectoris (principal); I42.9 Cardiomyopathy, unspecified; Z95.2 Presence of prosthetic heart valve | CPT/HCPCS: 99212 ==

== ENCOUNTER 2024-10-08 14:59 | Outpatient (AMB) | payer MEDICARE, SELFPAY ==
--- NOTE | 2024-10-08 15:22 | MHC.PC.OV ---
Vital Signs 10/08/24 15:23 Height 5 ft 10 in Weight 210 lb 2 oz BMI 30.1 BP 100/68 Blood Pressure Location Lt brachial Position Sitting Pulse 72 Pulse Source Pulse Oximeter Temp 97.1 F Temp Source Temporal Artery Scan Pulse Oximetry (%) 98 Oxygen Delivery Method Room Air Intake Visit Reasons: 6mth f/u - see comments Intake Note: Patient is here to follow up on DM, CAD, BPH. Offal Baler Required: No Banana Handler: Present Accompanied by: Spouse Allergies perflutren Adverse Reaction (Severe, Verified 10/08/24 15:23) Back Pain Tobacco use date assessed: 10/08/24 Fall risk assessment: 1 Fall in past year Last assessed Fall Risk: 10/08/24 Dental Screening Dental Screen Date: 10/08/24 Did you have a dental visit in the last 12 months?: Yes Did you have a dental problem in the last 6 months where you did not have access to dental care?: No Was dental information given to patient?: Patient has dentist [facility] Medical History Moderate to severe aortic stenosis CAD (coronary artery disease) Mild ascending aorta dilatation Diabetes mellitus Polymyalgia rheumatica Surgical History S/P AVR S/P CABG x 3 History of bilateral cataract extraction History of nasal surgery History of inguinal hernia repair History of lumbar laminectomy Family History Father No problems noted. Mother No problems noted. Brother Esophageal cancer Social History Housing: House Alcohol intake: current Alcohol intake frequency: holidays/special occasions only Alcohol type: beer Patient Tobacco Use Status: Former Tobacco user e-Cigarette/Vaping Use: Never Used Second Hand Smoke Exposure: Yes service: No Current occupational status: retired Cognitive needs: No Hearing needs: No Vision needs: Yes (reading glasses) Questionnaire PHQ-9 Over the last 2 weeks, how often have you been bothered by any of the following problems? 1. Little interest or pleasure in doing things: not at all 2. Feeling down, depressed, or hopeless: not at all 3. Trouble falling or staying asleep, or sleeping too much: not at all 4. Feeling tired or having little energy: not at all 5. Poor appetite or overeating: not at all 6. Feeling bad about yourself - or that you are a failure or have let yourself or your family down: not at all 7. Trouble concentrating on things, such as reading the newspaper or watching television: not at all 8. Moving or speaking so slowly that other people could have noticed. Or the opposite - being so fidgety or restless that you have been moving around a lot more than usual: not at all 9. Thoughts that you would be better off or of hurting yourself in some way: not at all Total score: 0 Depression Screening Interpretation: Negative Depression Screening Done: Yes Source: Developed by Drs. Guillermo Jha, Christiane Alegria, Tim Delgado and colleagues, with an educational dante from [employer]. Thrive Questionnaire Date Thrive assessed: 10/08/24 I am a: Patient What is your living situation today?: I have a steady place to live Within the past 12 months, did the food you bought not last and you didn't have the money to get more?: I choose not to answer this question Within the past 12 months, did you worry whether your food would run out before you got money to buy more?: Never true Do you have trouble paying for medicines?: No Do you have trouble getting transportation to medical appointments?: No Do you have trouble paying your heating and electricity bill?: No Do you have trouble taking care of your child, family member or friend?: No Do you have trouble with day-to-day activities such as bathing, preparing meals, shopping, managing finances, etc.?: No Are you currently unemployed and looking for a job?: No Are you interested in more education?: I choose not to answer this question Please select the resources that you would like help with: None Currently or been in a relationship where the following occur: I choose not to answer THRIVE Score: 0 AUDIT C Alcohol Use Questionnaire (AUDIT-C) 1. How often do you have a drink containing alcohol?: Never Total Score: 0 FLACO-7 AMB Questionnaire FLACO-7 Date FLACO - 7 assessed: 10/08/24 Feeling nervous, anxious, or on edge: 0 = Not at all Not being able to stop or control worryin = Not at all Worrying too much about different things: 0 = Not at all Trouble relaxin = Not at all Being so restless that it is hard to sit still: 0 = Not at all Becoming easily annoyed or irritable: 0 = Not at all Feeling afraid as if something awful might happen: 0 = Not at all Total FLACO-7 score (0-4 normal; 5-9 mild; 10-14 moderate; 15-21 severe): 0 Source: Developed by Drs. Guillermo Jha, Christiane Alegria, Tim Delgado and colleagues, with an educational dante from [employer]. Physical exam (Primary Care) Vital Signs: Last Vital Signs Temp 97.1 F 10/08/24 15:23 Pulse 72 10/08/24 15:23 BP 100/68 10/08/24 15:23 Pulse Ox 98 10/08/24 15:23 Oxygen Delivery Method Room Air 10/08/24 15:23 BMI result Body Mass Index 30.1 Tobacco/Smoking Status: Tobacco use Status Tobacco use date assessed 10/08/24 10/08/24 15:28 Patient Tobacco Use Status Former Tobacco user 10/08/24 15:28 e-Cigarette/Vaping Use Never Used 10/08/24 15:28 PHQ-9: PHQ-9 Score PHQ-9: Total score 0 10/08/24 15:28 Depression Screening Interpretation: Negative Thrive Assessment: Date of Thrive Assessment Date Thrive assessed 10/08/24 10/08/24 15:28 Currently or been in a relationship where the following occur: I choose not to answer Results AMB Hemoglobin A1c AMB Hemoglobin A1c 7.0 % Last Edit by DORIS South on 10/08/24 15:37 Results Reviewed Results Reviewed: Laboratory Last Values Hgb A1c (Clinic) 7.0 % (4.0-6.0) H 10/08/24 15:22 Coding Level of Care Code Est Pt Level 4 (91247) Complex EM visit Add On G2211 Diagnoses Coronary artery disease involving [place] coronary artery of [place] heart without angina pectoris I25.10 Associated angina: without angina Coronary Disease-Associated Artery/Lesion type: [place] artery [place] vs. transplanted heart: [place] heart Type 2 diabetes mellitus with hyperglycemia, without long-term current use of insulin E11.65 Diabetes mellitus complication status: with hyperglycemia Diabetes mellitus halfway insulin use: without improvement director use Diabetes mellitus type: type 2 Assessment & Plan Assessment & Plan (1) CAD (coronary artery disease): Code(s): I25.10 - Atherosclerotic heart disease of [place] coronary artery without angina pectoris Category: Medical Qualifiers: Associated angina: without angina Coronary Disease-Associated Artery/Lesion type: [place] artery [place] vs. transplanted heart: [place] heart Qualified Code(s): I25.10 - Atherosclerotic heart disease of [place] coronary artery without angina pectoris Plan: Condition is stable (2) Diabetes mellitus: Code(s): E11.9 - Type 2 diabetes mellitus without complications Category: Medical Qualifiers: Diabetes mellitus complication status: with hyperglycemia Diabetes mellitus halfway insulin use: without improvement director use Diabetes mellitus type: type 2 Qualified Code(s): E11.65 - Type 2 diabetes mellitus with hyperglycemia Plan: A1c in range. Continue meds at same dose Plan History of Present Illness The patient is an 79-year-old male presenting with concerns related to a wellness visit and ongoing management of chronic conditions, including Type 2 Diabetes Mellitus, knee pain, polymyalgia rheumatica, cutaneous fragility, and a burning sensation in the toe. He reports a recent increase in skin sensitivity leading to bleeding from minor contacts, suspected to be unrelated to current medications as a similar condition affects his son. Knee pain persists over 15 years, with injections administered for associated polymyalgia rheumatica helping manage symptoms. Activities like yard work exacerbate knee discomfort and have resulted in falls. He denies current polymyalgia rheumatica exacerbations. An intermittent burning sensation in the toenail of the big toe has persisted for over 15 years, recently disturbing his sleep. Incidences vary, with remission lasting weeks in between. He denies the possibility of gout based on symptom presentation and history. His Type 2 Diabetes Mellitus is controlled with metformin, and his recent weight loss of 5-7 pounds has been noted. He examines potential links between cutaneous issues and cholesterol medication but dismisses this based on familial evidence. Social History - No substance use or employment status discussed - No specific comments on housing or exercise provided - Family trait of cutaneous fragility noted Review of Systems - Dermatologic: Reports increased cutaneous fragility, resulting in bleeding with minor contact - Musculoskeletal: Reports knee pain - Neurologic: Reports burning sensation in the big toe - Endocrine: Denies issues with diabetes control; recent weight loss noted Physical Exam General: Cooperative and healthy appearing Nutritional Appearance: Well nourished Orientation/consciousness: Patient oriented x3 Limitations: No limitations Head: Normal to inspection General: Appearance normal, both eyes and all related structures Neck: Normal visual inspection Chest: Normal palpation of entire chest wall Respiratory: N ormal respiratory effort Neurology: Patient oriented x3, reports burning sensation in big toe, possibly nerve-related. Results Plan 1. Type 2 Diabetes Mellitus - Maintain current metformin regimen and monitor glucose levels. 2. Knee Pain - Continue interception with injections as deemed necessary. 3. Polymyalgia Rheumatica - Persist with injections for symptom control. 4. Cutaneous Fragility - Monitor and maintain existing practices given familial predisposition. 5. Burning Sensation In The Toe - Manage conservatively with separator socks; monitor progression. Discussion Notes During the visit, I discussed the patient's chronic conditions, including Type 2 Diabetes Mellitus for which his current regimen is effective. We addressed concerns over increased skin fragility and burning sensations in his toe, deciding to maintain current strategies since these symptoms do not align with more concerning conditions like gout. Regarding his knee pain and associated polymyalgia rheumatica, I recommended continuing existing injections as necessary. The patient?s health status, weight changes, and familial trends in cutaneous fragility were reviewed, confirming no need for acute interventions or medication adjustments at this time. We agreed on a follow-up schedule every six months unless issues arise sooner. Patient Instructions - Continue taking metformin as prescribed. - Regularly monitor your blood sugar levels and maintain your current dietary and exercise routine. - Use separator socks as needed for toe discomfort. - Contact the office if there are significant changes or worsening of symptoms, particularly regarding your skin or knee pain. - Follow-up visit arranged in six months. Orders: Orders Basic Metabolic Panel Today E11.65 - Type 2 diabetes mellitus with hyperglycemia, I25.10 - Atherosclerotic heart disease of [place] coronary artery without angina pectoris Complete Blood Count no Diff Today E11.65 - Type 2 diabetes mellitus with hyperglycemia, I25.10 - Atherosclerotic heart disease of [place] coronary artery without angina pectoris Lipid Panel Today E11.65 - Type 2 diabetes mellitus with hyperglycemia, I25.10 - Atherosclerotic heart disease of [place] coronary artery without angina pectoris Thyroid Stimulating Hormone Today E11.65 - Type 2 diabetes mellitus with hyperglycemia, I25.10 - Atherosclerotic heart disease of [place] coronary artery without angina pectoris AMB Hemoglobin A1c Today E11.65 - Type 2 diabetes mellitus with hyperglycemia Liver Panel Today E11.65 - Type 2 diabetes mellitus with hyperglycemia, I25.10 - Atherosclerotic heart disease of [place] coronary artery without angina pectoris UA and rflx microscopic Today E11.65 - Type 2 diabetes mellitus with hyperglycemia, I25.10 - Atherosclerotic heart disease of [place] coronary artery without angina pectoris Microalbumin, Random (w Creat) Today E11.65 - Type 2 diabetes mellitus with hyperglycemia, I25.10 - Atherosclerotic heart disease of [place] coronary artery without angina pectoris
[2024-10-08 15:23] VITALS: BP 100/68; PULSE 72; TEMP 36.2; O2SAT 98; BMI 30.1
== END 2024-10-08 15:54 | disposition home or self-care (01) ==
LOC: HO.HMCH 15:00
PROVIDERS: PCP Internal Medicine; Visit Provider Internal Medicine
DX: I25.10 Atherosclerotic heart disease of native coronary artery without angina pectoris (principal); E11.65 Type 2 diabetes mellitus with hyperglycemia

== ENCOUNTER → 2024-10-08 14:59 | Outpatient (BNVA) | payer MEDICARE, SELFPAY | PROVIDERS: PCP Internal Medicine; Visit Provider Internal Medicine | DX: N40.0 Benign prostatic hyperplasia without lower urinary tract symptoms (principal); I25.10 Atherosclerotic heart disease of native coronary artery without angina pectoris; E11.65 Type 2 diabetes mellitus with hyperglycemia | CPT/HCPCS: 83036; 96127; 99212 ==

== ENCOUNTER 2024-11-05 09:37 | Outpatient (REF) | payer MEDICARE, SELFPAY ==
[2024-11-05 13:20] LABS: Appearance Urine Turbid; Color Urine Dark Yellow; Glucose Urine UA Negative (Negative); Leukocyte Esterase Urine Small (1+) (Negative); Nitrite Urine Negative (Negative); Specific Gravity - Urine 1.025 (1.005-1.025); UMIC TRIGGER UA YES; Urine Blood Negative (Negative); Urine Ketones Negative (Negative); Urine Protein 30 (1+) mg/dL (Neg-Trace)
[2024-11-05 13:23] LABS: Bacteria Urine None Seen (None Seen); Hyaline Casts Urine 0-2 /LPF (0-2); RBC Urine 0-2 /HPF (0-2); Squamous Epithelial Cell Urine 0-2 /HPF (0-2)
[2024-11-05 13:42] LABS: Hematocrit 41.5 % (42.0-52.0); Hemoglobin 14.3 g/dl (14.0-18.0); Mean Corpuscular HGB Conc 34.5 g/dl (31.0-36.0); Mean Corpuscular Hemoglobin 32.9 pg (27.0-33.0); Mean Corpuscular Volume 95.4 fL (80.0-98.0); Mean Platelet Volume 11.1 fL (9.4-12.4); Platelet Count 150 X10*3/uL (160-400); Red Blood Count 4.35 X10*6/uL (4.60-5.80); Red Cell Distribution Width 13.3 % (11.0-16.0); White Blood Count 6.7 X10*3/uL (4.8-10.8)
[2024-11-05 13:54] LABS: Creatinine Urine 215.03 mg/dL; Microalbum/Creatinine Ratio Ur 32.5 ug/mg cr (<30)
[2024-11-05 14:45] LABS: Alanine Aminotransferase 52 U/L (0-40); Albumin Level 4.4 g/dL (3.5-5.0); Alkaline Phosphatase 53 U/L (39-117); Anion Gap 11 (12-20); Aspartate Amino Transferase 42 U/L (5-37); Bilirubin Direct 0.4 mg/dL (0.0-0.5); Bilirubin Total 0.9 mg/dL (0.0-1.0); Blood Urea Nitrogen 21 mg/dL (9-16); Calcium 9.8 mg/dL (8.4-10.2); Carbon Dioxide 27 mmol/L (22-29); Chloride 108 mmol/L (96-108); Cholesterol 120 mg/dL (<200); Estimated Glomerular Filt Rate > 60; Glucose Random 132 mg/dL (60-115); HDL Cholesterol 50 mg/dL (>40); LDL Cholesterol Calculated 54 mg/dL (<100); Potassium 4.3 mmol/L (3.3-5.1); Sodium 142 mmol/L (135-145); Total Protein 6.7 g/dL (6.5-8.0); Triglycerides 80 mg/dL (<150)
[2024-11-05 15:05] LABS: Thyroid Stimulating Hormone 1.75 uIU/mL (0.32-4.0)
== END 2024-11-05 09:38 | disposition home or self-care (01) ==
LOC: HO.HMGCLDS 09:37
PROVIDERS: PCP Internal Medicine; Referring Provider Internal Medicine Cardiovascular Disease; Visit Provider Internal Medicine
DX: I25.10 Atherosclerotic heart disease of native coronary artery without angina pectoris (principal); I42.9 Cardiomyopathy, unspecified; E11.65 Type 2 diabetes mellitus with hyperglycemia
CPT/HCPCS: 36415; 80048; 80061; 80076; 81001; 82043; 82570; 84443; 85027

== ENCOUNTER 2024-11-16 12:19 | Outpatient (AMB) | payer MEDICARE, SELFPAY ==
--- NOTE | 2024-11-16 12:36 | A.OFFVIS_ITS ---
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 He has no cardiovascular symptoms. He has main issue currently is bilateral knee pain, right worse than left. He said he gets significant pain in his limited in activity because of that. He denies any chest pain, shortness of breath, orthopnea, PND. Takes all his medications. Denies any heart failure symptoms. His last LDL was well optimized [facility] Medical History Moderate to severe aortic stenosis CAD (coronary artery disease) Mild ascending aorta dilatation Diabetes mellitus Polymyalgia rheumatica Surgical History S/P AVR S/P CABG x 3 History of bilateral cataract extraction History of nasal surgery History of inguinal hernia repair History of lumbar laminectomy Family History Father No problems noted. Mother No problems noted. Brother Esophageal cancer Social History Housing: House Alcohol intake: current Alcohol intake frequency: holidays/special occasions only Alcohol type: beer Patient Tobacco Use Status: Former Tobacco user e-Cigarette/Vaping Use: Never Used Second Hand Smoke Exposure: Yes service: No Current occupational status: retired Cognitive needs: No Hearing needs: No Vision needs: Yes (reading glasses) Review of Systems Const Denies chills, Denies fatigue, Denies fever(s), Denies frequent falls, Denies weakness, Denies weight gain and Denies weight loss ENT Denies dizziness Card Denies chest pain, Denies leg edema, Denies lightheadedness, Denies palpitations, Denies dyspnea, Denies dyspnea on exertion, Denies orthopnea and Denies other (loss of consciousness) Resp Denies cough, Denies dyspnea and Denies dyspnea on exertion GI Denies hematochezia and Denies change in stool character Musc Denies abnormal gait, Denies muscle weakness, Denies numbness, Denies radiating pain into limb and Denies tingling Neuro Denies Abnormal speech present, Denies abnormal gait, Denies dizziness, Denies frequent falls, Denies numbness, Denies tingling and Denies weakness Endo Denies fatigue and Denies palpitations Physical Exam Vital Signs: Last Vital Signs Pulse 71 11/16/24 12:37 BP 118/70 11/16/24 12:37 BMI result Body Mass Index 30.4 Const General: cooperative, comfortable, no acute distress, alert, awake, anxious and well groomed Nutritional Appearance: obese Orientation/consciousness: patient oriented x3 Limitations: no limitations HEENT Head: Yes normocephalic and Yes atraumatic Neck Neck: Yes trachea midline, Yes supple and Yes no JVD Resp Effort & Inspection: normal respiratory effort Auscultation: clear to auscultation bilaterally Cardio Jugular venous distension: no JVD Palpation: normal PMI Rate: regular rate Rhythm: regular rhythm Heart sounds: S1 normal heart sound present, S2 normal heart sound present ( soft), no click, no gallops and Murmur heart sound present systolic late, decrescendo and crescendo GI Inspection: Yes obesity Auscultation: normal bowel sounds Skin General skin exam: no rashes or lesions noted Neuro General: patient oriented x3 and no focal motor deficits Speech: No Abnormal speech present Extrem General: Yes no clubbing, cyanosis or edema Assessment & Plan Assessment & Plan (1) CAD (coronary artery disease): Code(s): I25.10 - Atherosclerotic heart disease of [place] coronary artery without angina pectoris Category: Medical Qualifiers: Coronary Disease-Associated Artery/Lesion type: [place] artery [place] vs. transplanted heart: [place] heart Associated angina: without angina Qualified Code(s): I25.10 - Atherosclerotic heart disease of [place] coronary artery without angina pectoris Plan: CAD status post coronary artery bypass grafting with no symptoms of angina. Continue aggressive medical therapy. Continue lifelong aspirin therapy. Continue current high-intensity statin therapy with well optimized LDL. Encoura ged to maintain activity level as tolerated which is not limited because of arthritis. Recommend orthopedic consultation. (2) S/P AVR: Comment: 25 mm bioprosthetic AVR, 03/25. Code(s): Z95.2 - Presence of prosthetic heart valve Category: Surgical Plan: Status bioprosthetic aortic valve replacement, working well clinically. Follow- up echocardiogram in 6 months time. Continue aspirin therapy. Continue aggressive vascular risk factor modification above. SBE prophylaxis as per ACC/aha guidelines. (3) Cardiomyopathy: Code(s): I42.9 - Cardiomyopathy, unspecified Category: Medical Plan: Cardiomyopathy with improved LV ejection fraction since bypass and on current neurohormonal modulation. Continue both. No signs or symptoms of heart failure. Continue current dose of metoprolol and valsartan. Can not further uptitrate due to lowish blood pressure. (4) Mild ascending aorta dilatation: Comment: Noted on Echo December 2022. 3.9cm Code(s): I77.810 - Thoracic aortic ectasia Category: Medical Plan: Mildly lightheaded thoracic aorta which is most likely related to atherosclerosis and prior aortic stenosis. Follow-up echocardiogram in 6 months time. Continue aggressive blood pressure control. Continue aggressive vascular risk factor modifications above. Follow up in the clinic in 6 months time with EKG. Thank you for allowing me to partake in his care Coding Level of Care Code Est Pt Level 4 (80623) Complex EM visit Add On G2211 Diagnoses Coronary artery disease involving [place] coronary artery of [place] heart without angina pectoris I25.10 Coronary Disease-Associated Artery/Lesion type: [place] artery [place] vs. transplanted heart: [place] heart Associated angina: without angina S/P AVR Z95.2 Cardiomyopathy I42.9 Mild ascending aorta dilatation I77.810
[2024-11-16 12:37] VITALS: BP 118/70; PULSE 71; BMI 30.4
== END 2024-11-16 12:57 | disposition home or self-care (01) ==
LOC: HO.HCS 12:20
PROVIDERS: PCP Internal Medicine; Visit Provider Internal Medicine Cardiovascular Disease
DX: I25.10 Atherosclerotic heart disease of native coronary artery without angina pectoris (principal); Z95.2 Presence of prosthetic heart valve; I42.9 Cardiomyopathy, unspecified; I77.810 Thoracic aortic ectasia
CPT/HCPCS: 99214; G2211

== ENCOUNTER → 2024-11-16 12:19 | Outpatient (BNVA) | payer MEDICARE, SELFPAY | PROVIDERS: PCP Internal Medicine; Visit Provider Internal Medicine Cardiovascular Disease | DX: I25.10 Atherosclerotic heart disease of native coronary artery without angina pectoris (principal); Z95.2 Presence of prosthetic heart valve; I42.9 Cardiomyopathy, unspecified; I77.810 Thoracic aortic ectasia | CPT/HCPCS: 99212 ==

== ENCOUNTER 2025-04-15 15:05 | Outpatient (AMB) | payer MEDICARE, SELFPAY ==
[2025-04-15 15:12] VITALS: BP 140/78; PULSE 63; TEMP 36.1; O2SAT 97; BMI 30.7
--- NOTE | 2025-04-15 15:12 | A.OFFPC_ITS ---
Vital Signs 04/15/25 15:12 Height 5 ft 10 in Weight 214 lb BMI 30.7 BP 140/78 H Blood Pressure Location Lt brachial Position Sitting Pulse 63 Pulse Source Pulse Oximeter Temp 96.9 F Temp Source Temporal Artery Scan Pulse Oximetry (%) 97 Oxygen Delivery Method Room Air Intake Visit Reasons: 6mth f/u Intake Note: Patient is here to follow up on DM, CAD,BPH. Recreational Counselor Required: No Incident Response Coordinator: Present Accompanied by: Spouse Allergies perflutren Adverse Reaction (Severe, Verified 04/15/25 15:15) Back Pain Tobacco use date assessed: 04/15/25 Fall risk assessment: No Falls in past year Last assessed Fall Risk: 04/15/25 Dental Screening Dental Screen Date: 10/08/24 [facility] Medical History Moderate to severe aortic stenosis CAD (coronary artery disease) Mild ascending aorta dilatation Diabetes mellitus Polymyalgia rheumatica Surgical History S/P AVR S/P CABG x 3 History of bilateral cataract extraction History of nasal surgery History of inguinal hernia repair History of lumbar laminectomy Family History Father No problems noted. Mother No problems noted. Brother Esophageal cancer Social History Housing: House Alcohol intake: current Alcohol intake frequency: holidays/special occasions only Alcohol type: beer Patient Tobacco Use Status: Former Tobacco user e-Cigarette/Vaping Use: Never Used Second Hand Smoke Exposure: Yes service: No Current occupational status: retired Cognitive needs: No Hearing needs: No Vision needs: Yes (reading glasses) Questionnaire Thrive Questionnaire Date Thrive assessed: 10/08/24 I am a: Patient What is your living situation today?: I have a steady place to live Within the past 12 months, did the food you bought not last and you didn't have the money to get more?: I choose not to answer this question Within the past 12 months, did you worry whether your food would run out before you got money to buy more?: Never true Do you have trouble paying for medicines?: No Do you have trouble getting transportation to medical appointments?: No Do you have trouble paying your heating and electricity bill?: No Do you have trouble taking care of your child, family member or friend?: No Do you have trouble with day-to-day activities such as bathing, preparing meals, shopping, managing finances, etc.?: No Are you currently unemployed and looking for a job?: No Are you interested in more education?: I choose not to answer this question Please select the resources that you would like help with: None Currently or been in a relationship where the following occur: I choose not to answer THRIVE Score: 0 AUDIT C Alcohol Use Questionnaire (AUDIT-C) 2. How many drinks containing alcohol do you have on a typical day when you are drinking?: 1 or 2 3. How often do you have six or more drinks on one occasion?: Never Total Score: 0 FLACO-7 AMB Questionnaire FLACO-7 Date FLACO - 7 assessed: 10/08/24 Source: Developed by Drs. Guillermo Jha, Christiane Alegria, Tim Delgado and colleagues, with an educational dante from [employer] (formerly [employer]). Physical exam (Primary Care) Vital Signs: Last Vital Signs Temp 96.9 F 04/15/25 15:12 Pulse 63 04/15/25 15:12 BP 140/78 H 04/15/25 15:12 Pulse Ox 97 04/15/25 15:12 Oxygen Delivery Method Room Air 04/15/25 15:12 BMI result Body Mass Index 30.7 Tobacco/Smoking Status: Tobacco use Status Tobacco use date assessed 04/15/25 04/15/25 15:18 Patient Tobacco Use Status Former Tobacco user 04/15/25 15:12 e-Cigarette/Vaping Use Never Used 04/15/25 15:12 Thrive Assessment: Date of Thrive Assessment Date Thrive assessed 10/08/24 04/15/25 15:12 Currently or been in a relationship where the following occur: I choose not to answer Results AMB Hemoglobin A1c AMB Hemoglobin A1c 6.7 % Last Edit by DORIS South on 04/15/25 15:23 Results Reviewed Results Reviewed: Laboratory Last Values Hgb A1c (Clinic) 6.7 % (4.0-6.0) H 04/15/25 15:22 Coding Level of Care Code Est Pt Level 4 (07611) Complex EM visit Add On G2211 Diagnoses Type 2 diabetes mellitus with hyperglycemia, without long-term current use of insulin E11.65 Diabetes mellitus type: type 2 Diabetes mellitus penitentiary insulin use: without aircraft detail draftsperson use Diabetes mellitus complication status: with hyperglycemia Assessment & Plan Assessment & Plan (1) Diabetes mellitus: Code(s): E11.9 - Type 2 diabetes mellitus without complications Category: Medical Qualifiers: Diabetes mellitus type: type 2 Diabetes mellitus aircraft detail draftsperson insulin use: without penitentiary use Diabetes mellitus complication status: with hyperglycemia Qualified Code(s): E11.65 - Type 2 diabetes mellitus with hyperglycemia Plan: History of Present Illness - The patient is an 80-year-old male presenting for a general follow-up. - He reports his blood sugars are well-controlled, with a recent HbA1c of 6.2%. - The main complaint is bilateral knee pain, for which he states he needs rep lacement. - He is hesitant to proceed with surgery due to his age and the long recovery time required for both knees. - The patient also reports a burning sensation in his toe that occurs at night during sleep. - He notes significant, easy bruising, stating his skin will turn purple from a light graze against a counter without any superficial damage. - The patient has received his flu shot. - He reports that a airplane woodworker previously assessed him and stated he was as healthy as he would ever be. Social History - Sleep Pattern: The patient reports sleeping well. - He goes to bed late and usually wakes up between 9:00 and 9:30 AM. - Functional Status: The patient reports being active and able to perform his usual activities throughout the day after getting up. - Social Situation: He mentions experiencing some family trouble and will be celebrating Thanksgiving with just his . Review of Systems - Musculoskeletal: Reports bilateral knee pain. - Neurological: Reports a burning sensation in his toe at night. - Integumentary/Hematologic: Reports easy bruising. - Constitutional: Reports sleeping well. Physical Exam General: Cooperative and healthy appearing Nutritional Appearance: Well nourished Orientation/consciousness: Patient oriented x3 Limitations: No limitations Head: Normal to inspection General: Appearance normal, both eyes and all related structures Neck: Normal visual inspection Chest: Normal palpation of entire chest wall Respiratory: Good ormal respiratory effort Neurology: Patient oriented x3 Results - Labs: HbA1c was 6.2%. Plan Discussion Notes Patient Instructions Orders: Orders AMB Hemoglobin A1c Today E11.65 - Type 2 diabetes mellitus with hyperglycemia
--- OUTSIDE RECORDS SUMMARY | 2025-04-15 18:19 | XMS_ITS | Patient Health Record ---
Author Organization [facility] Address [address] [place] [id number] Care Team Providers Care Switchboard Wirer Name Role Phone CHEMA SOMMERS Primary Care Provider Guillermo Doll Unavailable [phone] Reason For Referral No Information Medications Medication SIG (Take, Route, Frequency, Duration) Notes Start Date End Date Status Vitamin D3 2000 UNIT 1 capsule Orally On ce a day; Duration: 30 day(s) Active Centrum Silver - as directed Orally o nce a day Active Vitamin C 1000 MG 1 tablet Orally Once a day; Duration: 30 day(s) Active Metoprolol Succinate 50 MG 1 capsule Ora lly Once a day; Duration: 30 day(s) Active Grape Seed Extract 100 MG as directed Or ally once a day Active Aspir-Low 81 MG 1 tablet Orally Once a day; Duration: 30 day(s) Active Fish Oil 1000 MG 1 capsule Orally Onc e a day Active Simvastatin 20 MG 1 tablet in the even ing Orally Once a day; Duration: 30 day(s) Active metFORMIN HCl 500 MG 1 tablet with a pal l Orally Once a day; Duration: 30 day(s) Active Immunizations Vaccine Route Administration Date Status Comme nts Influenza Unknown 03/12/2018 Administered Social History Tobacco Use: Social History Observation Description Date Details (start date - stop date) Former Smoker NA - NA Tobacco Use/Smoking Question Answer Notes Patient is a former smoker How long has it been since you last smoked? > 10 years Alcohol Screen Question Answer Notes Did you have a drink contain ing alcohol in the past year? Yes How often did you have a dri nk containing alcohol in the past year? 2 to 4 times a month (2 points) How many drinks did you have on a typical day when you were drinking in the past year? 1 or 2 drinks (0 point) How often did you have 6 or more drinks on one occasion in the past year? Never (0 point) Points 2 Interpretation Negative Section Notes: Nonsmoker; no sig alcohol Problems Problem Type SNOMED Code ICD Code Onset Dates Problem Status W/U Status Risk Notes Problem Screening for malignant neoplasm of colon (172608490) Encounter for screening for malignant neoplasm of colon (Z12.11) Active confirmed Problem Preprocedural examination (980757637100742) Preprocedural examination (Z01.818) Active confirmed Problem Family History of Cancer of Colon (Situation) (134424538) Family history of colon cancer (Z80.0) Active confirmed Problem Long-term current use of antiplatelet drug (112365091958020) Long-term use of aspirin therapy (Z79.82) Active confirmed Plan Of Treatment Future Test Test Name Order Date COLONOSCOPY 02/05/2019 Insurance Providers Payer Name Payer Address Payer Phone Subscriber Number Group Number Insured Name Patient Relationship to Insured Coverage Start Date Coverage End Date [facility] [address] [place] [phone] [id number] MADAY MONROE Self - patient is the insured Medical (General) History Medical History History ICD Code Denies CVA,Lung disease,renal disease NIDDM [place] 09/02/2000-no stents nor subsequent hea rt issues Neg. colonoscopies in 2003 a nd 2007 with me, and a colonoscopy in [address] Reynolds was negative Chronically elevated LFT's felt to be du e to fatty liver Surgical History Surgery Date(Month/Year) Right inguinal hernia repair Back surgery Deviated septum
== END 2025-04-15 15:51 | disposition home or self-care (01) ==
LOC: HO.HMCH 15:06
PROVIDERS: PCP Internal Medicine; Visit Provider Internal Medicine
DX: E11.65 Type 2 diabetes mellitus with hyperglycemia (principal)

== ENCOUNTER → 2025-04-15 15:05 | Outpatient (BNVA) | payer MEDICARE, SELFPAY | PROVIDERS: PCP Internal Medicine; Visit Provider Internal Medicine | DX: E11.65 Type 2 diabetes mellitus with hyperglycemia (principal) | CPT/HCPCS: 83036; 99212 ==

== ENCOUNTER → 2025-05-03 12:53 | Outpatient (REF) | payer MEDICARE, SELFPAY ==
--- NOTE | 2025-05-03 12:57 | CA_ITS ---
Transthoracic Echocardiogram Patient (Last, First, Middle): Bry Martinez R Gender: M Date of : 1945 Age: 80 Procedure Date: 05/03/2025 Procedure Type: Transthoracic Echocardiogram Location: OP Height: 180.34 cm Weight: 95.26 kg BSA: 2.15 m2 Heart Rate: bpm BP: 124 / 80 mmHg Claim Professional: Referring MD: Danny Garduno MD Symptoms: I42.9 - Cardiomyopathy, unspecified Study Quality: Fair, Definity not used due to prior reaction ECG Rhythm: Sinus Conclusions: - The left ventricular systolic function is normal. The calculated ejection fraction is 55% by biplane method. - Possible basal inferior/inferolateral hypokinesis. - A bioprosthetic aortic valve is present. The prosthetic aortic valve appears to be functioning normally. Findings Left Ventricle Normal left ventricular cavity size. There is moderately increased left ventricular wall thickness. The left ventricular systolic function is normal. The calculated ejection fraction is 55% by biplane method. Diastolic function is normal for age. Possible basal inferior/inferolateral hypokinesis. Right Ventricle Normal right ventricular cavity size and systolic function. Atria Both atria are normal in size. Aortic Valve A bioprosthetic aortic valve is present. The prosthetic aortic valve appears to be functioning normally. There is no aortic valve regurgitation. Mitral Valve The mitral valve appears normal. There is trace mitral valve regurgitation. There is no mitral valve stenosis. Pulmonic Valve The pulmonic valve is likely normal. Tricuspid Valve Normal tricuspid valve structure. There is mild tricuspid valve regurgitation. There is no evidence of pulmonary hypertension. Great Vessels The aorta was not well visualized. Venous The inferior vena cava is normal in size and collapses greater than 50% with inspiration. Pericardium/Pleural There is no evidence of pericardial effusion. Prior Study Comparison No significant change compared to prior study dated: 05/04/2024. slight increase in aortic valve gradients; ascending aorta previously reported at 4.2cm, not well visualized in this study. Measurements 2D Linear Measurements IVSd: 1.27 0.6-0.9/0.6-1.0 cm LVIDd: 4.63 3.9-5.3/4.2-5.9 cm LVIDd Index: 2.15 2.4-3.2/2.2-3.1 cm/m2 LVIDs: 3.17 2.0-3.6 cm LVPWd: 1.35 0.7-1.1 cm Ao Root: 3.20 2.1-3.5 cm LA Diam: 4.80 2.7-3.8/3.0-4.0 cm LAIDs Index: 2.23 1.5-2.3 cm/m2 LV Mass: 293.10 67-162/88-224 g LV Mass Index: 136.32 43-95/49-115 g/m2 LVOT Diam: 2.00 3.0+(-)1.3 cm 2D Systolic Function EF 4C: 58.80 >55% EF 2C: 47.70 >55% EF BiP: 54.60 >55% Mitral Valve MV Pk E: 0.47 MV PK A: 0.74 MV Decel Time: 253.00 E/A: 0.60 E'Lateral: 7.51 E'Medial: 4.90 E/E' Med: 9.60 E/E' Lat: 6.30 PHT: 74.00 MVA PHT: 2.97 Decel [place]: 1.86 Aortic Valve AoV Pk Silvestre: 2.32 AoV Mn Silvestre: 1.71 AoV VTI: 0.52 AoV Pk Grad: 22.00 Aov Mn Grad: 13.00 NATHALIA Cont.VTI: 1.39 LVOT LVOT Pk Silvestre: 1.04 LVOT Mn Silvestre: 0.77 LVOT VTI: 0.23 LVOT Pk Grad: 4.00 LVOT Mn Grad: 3.00 LVOT Diam: 2.00 LVOT Area: 3.14 Diastolic Function MV Pk E: 0.47 MV Pk A: 0.74 E/A: 0.60 E'Medial: 4.90 E/E' Med: 9.60 E' Laterial: 7.51 E/E' Lat: 6.30 Right Ventricle TAPSE (mm): 23.00 Tricuspid Valve TR Pk Silvestre: 2.06 TR Pk Grad: 17.00 RA Press: 3.00 RVSP: 20.00 Great Vessels Aorta Ao Root-2D: 3.20 2.0-3.7 cm Pulmonary Valve PV Pk Silvestre: 1.03 Peak PV Grad: 4.00 Updated in Other Vendor System with Status of Final Zachary Vidales MD electronically signed on 05/04/2025 2:12:26 PM with status of Final
== END ==
LOC: HO.CARD 12:53
PROVIDERS: Visit Provider Internal Medicine Cardiovascular Disease
DX: I42.9 Cardiomyopathy, unspecified (principal)
CPT/HCPCS: 93306

== ENCOUNTER → 2025-05-03 12:57 | Outpatient (BNV) | payer MEDICARE, SELFPAY | PROVIDERS: Visit Provider Internal Medicine | DX: I42.9 Cardiomyopathy, unspecified (principal); I36.1 Nonrheumatic tricuspid (valve) insufficiency; Z95.2 Presence of prosthetic heart valve | CPT/HCPCS: 93306 ==

== ENCOUNTER 2025-05-18 13:18 | Outpatient (AMB) | payer MEDICARE, SELFPAY ==
[2025-05-18 13:20] VITALS: BP 120/78; PULSE 69; BMI 31.0
--- NOTE | 2025-05-18 13:20 | MHC.OFFVIS ---
Vital Signs 05/18/25 13:20 Height 5 ft 10 in Weight 216 lb 0.848 oz BMI 31.0 BP 120/78 Blood Pressure Location Lt brachial Position Sitting Pulse 69 Intake Visit Reasons: 6 mth f/up s/p; echo Intake Note: 6 month follow-up after echo feeling good [facility] Manager Required: No Allergies perflutren Adverse Reaction (Severe, Verified 04/15/25 15:15) Back Pain Medication List - Last Reconciled 05/18/25 by Danny Garduno MD aspirin 81 mg PO DAILY metformin ER 1,000 mg (2 x 500 mg) PO ONCE metoprolol succinate ER 50 mg PO DAILY multivitamin 1 tab PO DAILY omega 5-fwz-dty-fish oil 1,200 (144-216) mg (Fish Oil) caps PO rosuvastatin 40 mg PO DAILY valsartan 40 mg PO DAILY HPI Comments Details: Saud comes for follow-up. He remains independent and active. He is only limitations are musculoskeletal. Denies any exertional chest pain or shortness of breath. No orthopnea, PND, leg edema. No prolonged palpitation irregular heartbeat. Takes all his medications. Most recent echocardiogram shows improved LV EF with normal range with wall motion abnormality consistent with underlying coronary artery disease normally functioning bioprosthetic valve. [facility] Medical History Moderate to severe aortic stenosis CAD (coronary artery disease) Mild ascending aorta dilatation Diabetes mellitus Polymyalgia rheumatica Surgical History S/P AVR S/P CABG x 3 History of bilateral cataract extraction History of nasal surgery History of inguinal hernia repair History of lumbar laminectomy Family History Father No problems noted. Mother No problems noted. Brother Esophageal cancer Social History Housing: House Alcohol intake: current Alcohol intake frequency: holidays/special occasions only Alcohol type: beer Patient Tobacco Use Status: Former Tobacco user e-Cigarette/Vaping Use: Never Used Second Hand Smoke Exposure: Yes service: No Current occupational status: retired Cognitive needs: No Hearing needs: No Vision needs: Yes (reading glasses) Review of Systems Const Denies chills, Denies fatigue, Denies fever(s), Denies frequent falls, Denies weakness, Denies weight gain and Denies weight loss ENT Denies dizziness Card Denies chest pain, Denies leg edema, Denies lightheadedness, Denies palpitations, Denies dyspnea, Denies dyspnea on exertion, Denies orthopnea and Denies other (loss of consciousness) Resp Denies cough, Denies dyspnea and Denies dyspnea on exertion GI Denies hematochezia and Denies change in stool character Musc Denies abnormal gait, Denies muscle weakness, Denies numbness, Denies radiating pain into limb and Denies tingling Neuro Denies Abnormal speech present, Denies abnormal gait, Denies dizziness, Denies frequent falls, Denies numbness, Denies tingling and Denies weakness Endo Denies fatigue and Denies palpitations Physical Exam Vital Signs: Last Vital Signs Pulse 69 05/18/25 13:20 BP 120/78 05/18/25 13:20 BMI result Body Mass Index 31.0 Const General: cooperative, comfortable, no acute distress, alert, awake, anxious and well groomed Nutritional Appearance: obese Orientation/consciousness: patient oriented x3 Limitations: no limitations HEENT Head: Yes normocephalic and Yes atraumatic Neck Neck: Yes trachea midline, Yes supple and Yes no JVD Resp Effort & Inspection: normal respiratory effort Auscultation: clear to auscultation bilaterally Cardio Jugular venous distension: no JVD Palpation: normal PMI Rate: regular rate Rhythm: regular rhythm Heart sounds: S1 normal heart sound present, S2 normal heart sound present ( soft), no click, no gallops and Murmur heart sound present systolic late, decrescendo and crescendo GI Inspection: Yes obesity Auscultation: normal bowel sounds Skin General skin exam: no rashes or lesions noted Neuro General: patient oriented x3 and no focal motor deficits Speech: No Abnormal speech present Extrem General: Yes no clubbing, cyanosis or edema Assessment & Plan Assessment & Plan (1) CAD (coronary artery disease): Code(s): I25.10 - Atherosclerotic heart disease of [place] coronary artery without angina pectoris Category: Medical Qualifiers: Associated angina: without angina Coronary Disease-Associated Artery/Lesion type: [place] artery [place] vs. transplanted heart: [place] heart Qualified Code(s): I25.10 - Atherosclerotic heart disease of [place] coronary artery without angina pectoris Plan: CAD status post coronary artery bypass grafting with underlying wall motion abnormality with normalized LV ejection fraction. Continue aggressive medical therapy. Continue low-dose aspirin therapy for life. Continue current valsartan and metoprolol therapy for neurohormonal modulation as well as blood pressure control which is currently well optimized. Continue high-intensity statin therapy with target goal LDL less than 60 mg/dL. Annual lipid check is recommended. Encouraged to maintain activity level as tolerated. Advised to call me with any new symptoms. (2) S/P AVR: Comment: 25 mm bioprosthetic AVR, 03/25. Code(s): Z95.2 - Presence of prosthetic heart valve Category: Surgical Plan: Status post aortic valve replacement for severe aortic stenosis. Clinically doing well. Continue aggressive vascular risk factor modifications above. SBE prophylaxis as per ACC/[place] guidelines. Follow-up echocardiogram in 1 year's time. Will follow up in the clinic in 1 year's time, sooner PRN. Thank you for allowing me to partake in his care Orders: Orders CA echo transthoracic complete 1 Year Z95.2 - Presence of prosthetic heart valve Coding Level of Care Code Est Pt Level 4 (84001) Diagnoses Coronary artery disease involving [place] coronary artery of [place] heart without angina pectoris I25.10 Associated angina: without angina Coronary Disease-Associated Artery/Lesion type: [place] artery [place] vs. transplanted heart: [place] heart S/P AVR Z95.2
--- OUTSIDE RECORDS SUMMARY | 2025-05-18 17:20 | XMS_ITS | Patient Health Record ---
Author Organization [facility] Address [address] [place] [id number] Care Team Providers Care Senior Maintenance Technician Name Role Phone CHEMA S[facility]ERS Primary Care Provider Guillermo Doll Unavailable [phone] Reason For Referral No Information Medications Medication SIG (Take, Route, Frequency, Duration) Notes Start Date End Date Status Vitamin D3 2000 UNIT Capsule 1 capsule Orally Once a day; Duration: 30 day(s) Active Centrum Silver - Tablet as directed Oral ly once a day Active Vitamin C 1000 MG Tablet 1 tablet Orally Once a day; Duration: 30 day(s) Active Metoprolol Succinate 50 MG Capsule ER 24 Hour Sprinkle 1 capsule Orally Once a day; Duration: 30 day(s) Active Grape Seed Extract 100 MG Capsule as directed Orally once a day Active Aspir-Low 81 MG Tablet Delayed Release 1 tablet Orally Once a day; Duration: 30 day(s) Active Fish Oil 1000 MG Capsule 1 capsule Orall y Once a day Active Simvastatin 20 MG Tablet 1 tablet in the evening Orally Once a day; Duration: 30 day(s) Active metFORMIN HCl 500 MG Tablet 1 tablet wit h a meal Orally Once a day; Duration: 30 day(s) Active Immunizations Vaccine Route Administration Date Status Comme nts Influenza Unknown 03/12/2018 Administered Social History Tobacco Use: Social History Observation Description Date Details (start date - stop date) Former Smoker NA - NA Social History Drugs/Alcohol: Social Info Question Answer Notes Alcohol Screen Did you have a drink containing alcohol in the past year? Yes How often did you have a drink containing alcohol in the past year? 2 to 4 times a month (2 points) How many drinks did you have on a typical day when you were drinking in the past year? 1 or 2 drinks (0 point) How often did you have 6 or more drinks on one occasion in the past year? Never (0 point) Points 2 Interpretation Negative Tobacco Use: Social Info Question Answer Notes Tobacco Use/Smoking Patient is a former smoker How long has it been since you last smoked? > 10 years Additional Details Category Social Info Options Details Miscellaneous: Marital status: Occupation: retired Section Notes: Nonsmoker; no sig alcohol Problems Problem Type SNOMED Code ICD Code Onset Dates Problem Status W/U Status Risk Notes Problem Screening for malignant neoplasm of colon (679399539) Encounter for screening for malignant neoplasm of colon (Z12.11) Active confirmed Problem Preprocedural examination ([id number]) Preprocedural examination (Z01.818) Active confirmed Problem Family History of Cancer of Colon (Situation) (368146229) Family history of colon cancer (Z80.0) Active confirmed Problem Long-term current use of antiplatelet drug (897849877850081) Long-term use of aspirin therapy (Z79.82) Active confirmed Plan Of Treatment Future Test Test Name Order Date COLONOSCOPY 02/05/2019 Insurance Providers Payer Name Payer Address Payer Phone Subscriber Number Group Number Insured Name Patient Relationship to Insured Coverage Start Date Coverage End Date [facility] [address] [place] [phone] [phone] [id number] MADAY MONROE Self - patient is the insured Medical (General) History Medical History History ICD Code Denies CVA,Lung disease,renal disease NIDDM CA 09/02/2000-no stents nor subsequent hea rt issues Neg. colonoscopies in 2003 a nd 2007 with me, and a colonoscopy in [address] Reynolds was negative Chronically elevated LFT's felt to be du e to fatty liver Surgical History Surgery Date(Month/Year) Right inguinal hernia repair Back surgery Deviated septum
== END 2025-05-18 13:39 | disposition home or self-care (01) ==
LOC: HO.HCS 13:19
PROVIDERS: PCP Internal Medicine; Visit Provider Internal Medicine Cardiovascular Disease
DX: I25.10 Atherosclerotic heart disease of native coronary artery without angina pectoris (principal); Z95.2 Presence of prosthetic heart valve
CPT/HCPCS: 99214

== ENCOUNTER → 2025-05-18 13:18 | Outpatient (BNVA) | payer MEDICARE, SELFPAY | PROVIDERS: PCP Internal Medicine; Visit Provider Internal Medicine Cardiovascular Disease | DX: I25.10 Atherosclerotic heart disease of native coronary artery without angina pectoris (principal); Z95.2 Presence of prosthetic heart valve; Z79.82 Long term (current) use of aspirin; Z95.1 Presence of aortocoronary bypass graft; Z79.899 Other long term (current) drug therapy; Z87.891 Personal history of nicotine dependence | CPT/HCPCS: 99212 ==